=== PATIENT | female | born 1930 | race Caucasian/White ===

== ENCOUNTER 2016-09-24 18:18 | Inpatient (IN) ==
--- NOTE | 2016-09-24 18:27 | Emergency Department Note ---
Disposition Clinical Impression: Fracture, humerus, proximal Qualifiers: Encounter type: initial encounter Fracture type: closed Fracture morphology: other fracture Fracture alignment: displaced Laterality: left Qualified Code(s) : S42.292A - Other displaced fracture of upper end of left humerus, initial encounter for closed fracture Disposition: Admitted As Inpatient Condition: Fair Referrals: Cody Geronimo MD [Primary Care Provider] - Forms: ED Satisfaction Letter Fall HPI - General Chief Complaint: ED Fall Stated Complaint: FALL LEFT SHOULDER INJURY Time Seen by Provider: 09/24/16 18:25 Source: patient, EMS Mode of arrival: EMS Limitations: no limitations Nursing Notes Reviewed: Yes Vital Signs Reviewed: Yes - History of Present Illness HPI Narrative: Patient reports she tripped and fell shortly before presentation landing squarely on her left shoulder and sustaining no other area of injury. She denies any injury to her abdomen or back. She has not been having chest pain, palpitations or shortness of breath. She denies any weakness, dizziness or presyncopal complaints precipitating this fall. She has not been having abdominal pain, nausea, vomiting or diarrhea. She denies any extremity numbness , tingling or weakness. She reports severe pain with any motion of the left shoulder. 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 Place Fall Occurred: home Loss of Consciousness: none Prolonged Down Time?: no Symptoms Prior to Fall: none Context: tripped/slipped Location of injury - extremities: Left: shoulder Severity: severe Quality: sharp, aching Associated symptoms (after fall): Denies: headache, neck pain, numbness, weakness, chest pain, shortness of breath, abdominal pain, hematuria, lightheaded, vertigo, confusion - Related Data Home Medications Medication Instructions Recorded Confirmed Aspirin 81 mg PO DAILY 10/03/15 09/24/16 Cholecalciferol (Vitamin D3) 50,000 unit PO QWEEK 10/03/15 09/24/16 [Optimal D3] Cholecalciferol (Vitamin D3) 2,000 unit PO DAILY 10/03/15 09/24/16 [Vitamin D3] Hydrochlorothiazide 12.5 mg PO DAILY 10/03/15 09/24/16 Insulin ASPART [NovoLOG] 6 unit SQ TIDWM 10/03/15 09/24/16 Insulin DETEMIR [Levemir] 13 unit SQ HS 10/03/15 09/24/16 Lisinopril [Zestril] 40 mg PO DAILY 10/03/15 09/24/16 Metoprolol [Lopressor] 25 mg PO BID 10/03/15 09/24/16 Simvastatin [Zocor] 10 mg PO DAILY 10/03/15 09/24/16 Gabapentin [Neurontin] 100 mg PO TID 10/25/15 09/24/16 Rivaroxaban [Xarelto] 10 mg PO DAILY 05/31/16 09/24/16 Previous Rx's Medication Instructions Recorded LORazepam [Ativan] 0.5 mg PO TID PRN #10 tablet 04/13/16 Amlodipine [Norvasc] 5 mg PO BID #60 tablet 06/02/16 Allergies Allergy/AdvReac Type Severity Reaction Status Date / Time Penicillins [PCN] Allergy Rash Verified 10/25/15 12:19 All systems ED: reviewed and negative except as stated. Fall PMH - Past Medical History Medical history: Reports: arthritis, coronary artery disease, diabetes, hyperlipidemia, hypertension, myocardial infarction, pulmonary embolus, renal disease Surgical history: Reports: cholecystectomy, coronary bypass (CABG), other Psychiatric history: Reports: anxiety PIN PUSHER history: Reports: no PIN PUSHER history - Social History Smoking Status: Never smoker Alcohol use: Reports: none Drug use: Reports: none Physical Exam - General Limitations: no limitations General appearance: alert, anxious - Head Head exam: atraumatic, normocephalic, normal inspection, other (No tenderness to palpation about the scalp or facial prominences) - Eye Eye exam: Present: normal appearance, PERRL, EOMI. Absent: scleral icterus, conjunctival injection - ENT ENT exam: normal exam, normal oropharynx, mucous membranes moist - Neck Neck exam: Present: normal inspection, full ROM, trachea midline. Absent: tenderness, lymphadenopathy - Chest Chest inspection: Present: normal inspection, symmetric chest wall rise. Absent : tenderness - Respiratory Respiratory exam: Present: normal lung sounds bilaterally. Absent: respiratory distress, wheezes, prolonged expiratory phase - Cardiovascular Cardiovascular exam: Present: regular rate, normal rhythm, normal heart sounds. Absent: tachycardia - Abdominal Exam Abdominal exam: Present: soft, Non-Tender, normal bowel sounds. Absent: tenderness, distention, guarding, rebound, rigidity - Expanded Upper Extremity Exam Shoulder exam: Present: other (Shoulder his sound mildly anterior and appears to be somewhat shortened. She is tender over the dorsal and anterior aspect of the shoulder as well as some posterior pain to palpation. There is no erythema , bruising or crepitance.) Arm exam: Present: normal inspection, full ROM Elbow exam: Present: normal inspection, full ROM. Absent: tenderness, swelling Forearm/Wrist exam: Present: normal inspection, full ROM. Absent: tenderness, swelling Hand exam: Present: normal inspection, full ROM Vascular exam: Normal: capillary refill, radial pulse - Expanded Lower Extremity Exam Hip/Pelvis exam: Present: normal inspection, full ROM. Absent: tenderness, swelling Upper leg exam: Present: normal inspection, full ROM Knee exam: Present: normal inspection, full ROM, abrasion (Right knee). Absent : tenderness, swelling Lower leg exam: Present: normal inspection, full ROM Ankle exam: Present: normal inspection, full ROM. Absent: tenderness, swelling Foot/toe exam: Present: normal inspection, full ROM Neurovascular/Tendon exam: Present: normal capillary refill. Absent: motor deficit, sensory deficit, tendon deficit Gait: not tested/not observed - Back Exam Back exam: Present: normal inspection, full ROM. Absent: tenderness, vertebral tenderness - Neurological Exam Neurological exam: Present: alert, oriented X3, CN II-XII intact - Psychiatric Psychiatric exam: Present: agitated, anxious - Skin Skin exam: Present: warm, dry, intact, normal color. Absent: diaphoresis, pallor Course Course Narrative: 1939: Imaging results are discussed with the patient and family. I will be contacting Dr. Aburto concrete form setter for orthopedic to help coordinate her care. At this point believe she will likely need observation with a PT OT consult to assess her ability to care for self and help her with her mobility. She also is continuing with severe pain for which we are administering a second 0.5 mg dose of Dilaudid. 1944: Dr Aburto states that there be no immediate orthopedic intervention for this patient. He recommends observation under the hospitalist service for pain control and possibly go to rehabilitation. He would be happy to follow-up with her care and her shoulder to help coordinate care from home or rehabilitation. 1946: Dr. Nava has been contacted and he is agreeable to place this patient in for pain control as well as social science research assistant, PT and OT consultation on Monday. Vital Signs Temperature 98.3 F 09/24/16 18:26 Pulse Rate 88 09/24/16 18:26 Respiratory Rate 20 09/24/16 18:26 Blood Pressure 164/85 09/24/16 18:26 O2 Sat by Pulse Oximetry 99 09/24/16 18:26 Temperature 98.3 F 09/24/16 18:26 Pulse Rate 83 09/24/16 19:50 Respiratory Rate 16 09/24/16 19:50 Blood Pressure 162/70 09/24/16 19:50 O2 Sat by Pulse Oximetry 93 09/24/16 19:50 Oxygen Delivery Oxygen Delivery Room Air Fall - Differential Diagnosis Likely: syncope, traumatic injury, arrhythmia - Medical Records Medical records reviewed: Yes I reviewed the patient's medical records. - Lab Data Lab results reviewed: Yes I reviewed the patient's lab results. Result diagrams: 09/24/16 19:03 09/24/16 19:03 Lab Results 09/24/16 09/24/16 09/24/16 Range/Units 18:31 19:03 19:03 WBC 10.0 (4.3-11.1) K/mcL RBC 4.23 (3.82-4.97) M/mcL Hgb 13.7 (11.5-15.4) g/dL Hct 40.8 (35.3-44.9) % MCV 96.5 (83.0-100.0) fL MCH 32.4 (28.0-33.3) pg MCHC 33.6 (31.6-35.5) g/dL RDW 13.1 (11.5-14.5) % Plt Count 315 (140-400) K/mcL MPV 11.4 (9.4-12.4) fL Immature Gran % 0.3 (0-4) % Seg Neutrophils % 55.4 % Lymphocytes % 30.5 % Monocytes % 10.8 % Eosinophils % 2.3 % Basophils % 0.7 % Neutrophils # 5.5 (1.6-8.9) K/mcL Lymphocytes # 3.0 (0.6-4.6) K/mcL Monocytes # 1.1 (0.0-1.3) K/mcL Eosinophils # 0.2 (0.0-0.6) K/mcL Basophils # 0.1 (0.0-0.2) K/mcL PT 11.8 (9.4-12.1) Seconds INR 1.1 APTT 27.4 (26.0-36.0) Seconds Sodium (136-145) mEq/L Potassium (3.5-4.5) mEq/L Chloride (98-109) mEq/L Carbon Dioxide (19-29) mEq/L BUN (7-20) mg/dL Creatinine (0.57-1.11) mg/dL Est GFR ( Amer) (> 60) Est GFR (Non-Af Amer) (> 60) BUN/Creatinine Ratio (6-26) Glucose (70-99) mg/dL POC Glucose 92 H (58-89) Calculated Osmolality (280-300) Calcium (8.6-10.8) mg/dL 09/24/16 Range/Units 19:03 WBC (4.3-11.1) K/mcL RBC (3.82-4.97) M/mcL Hgb (11.5-15.4) g/dL Hct (35.3-44.9) % MCV (83.0-100.0) fL MCH (28.0-33.3) pg MCHC (31.6-35.5) g/dL RDW (11.5-14.5) % Plt Count (140-400) K/mcL MPV (9.4-12.4) fL Immature Gran % (0-4) % Seg Neutrophils % % Lymphocytes % % Monocytes % % Eosinophils % % Basophils % % Neutrophils # (1.6-8.9) K/mcL Lymphocytes # (0.6-4.6) K/mcL Monocytes # (0.0-1.3) K/mcL Eosinophils # (0.0-0.6) K/mcL Basophils # (0.0-0.2) K/mcL PT (9.4-12.1) Seconds INR APTT (26.0-36.0) Seconds Sodium 141 (136-145) mEq/L Potassium 3.9 (3.5-4.5) mEq/L Chloride 107 (98-109) mEq/L Carbon Dioxide 18 L (19-29) mEq/L BUN 28 H (7-20) mg/dL Creatinine 1.17 H (0.57-1.11) mg/dL Est GFR ( Amer) 53 L (> 60) Est GFR (Non-Af Amer) 44 L (> 60) BUN/Creatinine Ratio 24 (6-26) Glucose 92 (70-99) mg/dL POC Glucose (58-89) Calculated Osmolality 297 (280-300) Calcium 9.0 (8.6-10.8) mg/dL - Radiology Data Radiology results reviewed: Yes I reviewed the patient's radiology results. Two-view of the left humerus demonstrates a displaced proximal humeral fracture. No other acute abnormality is seen. This is on my interpretation. 2 view x-ray of the left shoulder also demonstrates the proximal left humeral fracture. There is displacement. There is no evidence for dislocation. Adjacent ribs and lung appear to be intact. This is on my interpretation. Impressions Shoulder X-Ray 09/24/16 18:27 IMPRESSION: Comminuted impacted displaced rheumatic fracture of the proximal left humerus. . The number of fracture fragments is difficult to determine. D/ / Melvin Pringle MD / Melvin Pringle MD Interpreting Provider: Melvin Pringle MD Humerus X-Ray 09/24/16 19:01
[2016-09-24] MEDS ORDERED: *HR* HYDROmorphone (PF) 1 MG/ML SYRINGE IVP ONE ×2 (18:28→19:12)
[2016-09-24] MEDS ORDERED: Ondansetron 4 MG/2 ML VIAL IVP ONE (18:28)
[2016-09-24] MEDS ORDERED: 0.9 % Sodium Chloride 1,000 ML IVC SCH ×2 (18:30→20:54)
[2016-09-24 19:17] LABS: Basophils # 0.1 K/mcL (0.0-0.2); Basophils % 0.7 %; Eosinophils # 0.2 K/mcL (0.0-0.6); Eosinophils % 2.3 %; Hematocrit 40.8 % (35.3-44.9); Hemoglobin 13.7 g/dL (11.5-15.4); Immature Granulocytes % 0.3 % (0-4); Lymphocytes % 30.5 %; Mean Corpuscular HGB Conc 33.6 g/dL (31.6-35.5); Mean Corpuscular Hemoglobin 32.4 pg (28.0-33.3); Mean Corpuscular Volume 96.5 fL (83.0-100.0); Mean Platelet Volume 11.4 fL (9.4-12.4); Monocytes # 1.1 K/mcL (0.0-1.3); Monocytes % 10.8 %; Neutrophils # 5.5 K/mcL (1.6-8.9); Platelet Count 315 K/mcL (140-400); Red Blood Count 4.23 M/mcL (3.82-4.97); Red Cell Distribution Width 13.1 % (11.5-14.5); Segmented Neutrophils % 55.4 %
[2016-09-24 19:23] LABS: INR 1.1; Prothrombin Time 11.8 Seconds (9.4-12.1)
[2016-09-24 19:25] LABS: Activated Partial Thrombo Time 27.4 Seconds (26.0-36.0)
[2016-09-24 19:33] LABS: Potassium 3.9 mEq/L (3.5-4.5)
[2016-09-24] MEDS ORDERED: MOM Conc 10 ML UD.LIQ PO PRN (20:54)
[2016-09-24] MEDS ORDERED: *HR* Dextrose 50 % in Water (Syg) 50 ML SYRINGE IVP PRN (20:54)
[2016-09-24] MEDS ORDERED: Dextrose Gel 15 GM PO PRN ×2 (20:54)
[2016-09-24] MEDS ORDERED: D5% in Water 1,000 ML IVC PRN (20:54)
[2016-09-24] MEDS ORDERED: Naloxone 0.4 MG/ML INJ IVP PRN (20:54)
[2016-09-24] MEDS ORDERED: INSULIN DETEMIR 13 UNIT SQ SCH (21:00)
[2016-09-24] MEDS ORDERED: Insulin DETEMIR 100 UNIT/ML per UNIT SQ ONE (21:15)
[2016-09-24] MEDS: Ondansetron 4 MG/2 ML VIAL IVP PRN (21:22)
[2016-09-24] MEDS: *HR* HYDROmorphone (PF) 1 MG/ML SYRINGE IVP PRN (23:54)
[2016-09-25] MEDS: Gabapentin 100 MG CAPSULE PO SCH ×2 (02:29→09:05)
[2016-09-25] MEDS: *HR* LORazepam 0.5 MG TABLET PO PRN ×2 (02:46→20:50)
[2016-09-25] MEDS: *HR* HYDROcodone/Acet 5/325 mg TABLET PO PRN ×3 (02:46→14:54)
[2016-09-25] MEDS ORDERED: Pantoprazole 40 MG VIAL IVP SCH (06:30)
[2016-09-25] MEDS ORDERED: Insulin LISPRO 300 UNITS/3 ML VIAL SQ SCH (08:00)
[2016-09-25] MEDS: Insulin DETEMIR 100 UNIT/ML X5UNITS SQ SCH (08:09)
[2016-09-25] MEDS: Ondansetron 4 MG/2 ML VIAL IVP PRN (08:16)
[2016-09-25] MEDS: Insulin LISPRO 300 UNITS/3 ML VIAL SQ SCH ×3 (08:21→17:32)
[2016-09-25] MEDS: 0.9 % Sodium Chloride 1,000 ML IVC SCH ×2 (09:03→21:34)
[2016-09-25] MEDS: Cholecalciferol (D-3) 1,000 UNIT TABLET PO SCH (09:04)
[2016-09-25] MEDS: Aspirin 81 MG TAB.CHEW PO SCH (09:04)
[2016-09-25] MEDS: Lisinopril 20 MG TABLET PO SCH (09:04)
[2016-09-25] MEDS ORDERED: Gabapentin 100 MG CAPSULE PO PRN (09:20)
--- NOTE | 2016-09-25 11:35 | Internal Med History&Physical ---
Date of Encounter: 09/25/16 Time of Encounter: 11:00 Assessment and Plan (1) Fracture, humerus, proximal Current visit: Yes Status: Acute She will be given scheduled and prn analgesics. PT and OT evaluations will be ordered. Qualifiers: Encounter type: initial encounter Fracture type: closed Fracture morphology: other fracture Fracture alignment: displaced Laterality: left Qualified Code(s): S42.292A - Other displaced fracture of upper end of left humerus, initial encounter for closed fracture (2) DM type 2 (diabetes mellitus, type 2) Current visit: No Status: Chronic Continue Levemir and Accu-Cheks with SSI. 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 (4) Chronic lower back pain Current visit: No Status: Chronic Will start low-dose OxyContin for humerus fracture. We will also continue prn Robbins Qualifiers: Back pain laterality: right Sciatica presence: with sciatica Sciatica laterality: sciatica of right side Qualified Code(s): M54.41 - Lumbago with sciatica, right side; G89.29 - Other chronic pain (5) Hypertension Current visit: Yes Status: Chronic Continue Norvasc, HCTZ, Zestril, and Lopressor. Qualifiers: Hypertension type: essential hypertension Qualified Code(s): I10 - Essential (primary) hypertension Internal Medicine - H&P: HPI Chief complaint: Left humerus fracture Admitted From: Home Plans for Post Hospital Care: Home History of present illness: Ms. Pugh is a 85 year old female who sustained a fall at home while walking. She landed on her left shoulder and had immediate pain. She pushed her [facility] button and help arrived. She was brought to emergency room and x-rays showed impacted left humerus fracture with medial displacement and apex medial angulation with comminution. Contact was made with [facility] orthopedic surgeons who felt nonoperative intervention was appropriate. She was placed in an immobilizing sling and admitted to [facility] for ongoing care needs. She denies head trauma or loss of consciousness. She is having slight pain at the present time. Her musk skeletal history significant for DJD and osteoporosis but no known gout. She had 3 knee injections recently. Past Med Surg Social Fam HX - Past Medical History Medical history: arthritis, atrial fibrillation, coronary artery disease, DVT, diabetes, hyperlipidemia, hypertension, myocardial infarction, pulmonary embolus , renal disease Psychiatric history: anxiety - Past Surgical History Surgical History: cholecystectomy, coronary bypass (CABG), other, IVC filter - Social History Smoking Status: Never smoker Smokeless Tobacco Status: No Alcohol use: none Drug use: none Internal Medicine - H&P: Meds Aspirin 81 mg PO DAILY 10/03/15 [History] Cholecalciferol (Vitamin D3) [Optimal D3] 50,000 unit PO QWEEK 10/03/15 [History ] Cholecalciferol (Vitamin D3) [Vitamin D3] 2,000 unit PO DAILY 10/03/15 [History] Hydrochlorothiazide 12.5 mg PO DAILY 10/03/15 [History] Insulin ASPART [NovoLOG] 0 unit SQ TIDWM 10/03/15 [History] Insulin DETEMIR [Levemir] 16 unit SQ QAM 10/03/15 [History] Lisinopril [Zestril] 40 mg PO DAILY 10/03/15 [History] Metoprolol [Lopressor] 12.5 mg PO BID 10/03/15 [History] Simvastatin [Zocor] 10 mg PO DAILY 10/03/15 [History] Gabapentin [Neurontin] 100 mg PO TID PRN 10/25/15 [History] Rivaroxaban [Xarelto] 10 mg PO DAILY 05/31/16 [History] Amlodipine [Norvasc] 5 mg PO BID #60 tablet 06/02/16 [Rx] Allergies Penicillins [PCN] Allergy (Verified 10/25/15 12:19) Rash All Systems PM: A 10-system review of systems was performed and is negative for pertinent findings except as documented above in the HPI. Review of systems: Gen.: Her weight has increased from 81.647 kg at the November 2014 hospitalization to 85.457 kg at present. Cardiovascular: She has hypertension and known ASHD status post NSTEMI January 2014 and 3 vessel CABG April 2014 with MONZON to LAD, SVG to first OM, and SVG to PDA. Her postop course required thoracentesis on the left. She had I&D of left chest and sternotomy wounds February 2014 with wound VAC required. She has had pulmonary emboli on 2 occasions, most recently in 2008. She is now on Xarelto. She has an IVC filter. She had an echocardiogram done March 2016 which showed normal LVEF at 60%. There was mild diastolic dysfunction ported. She does not have clinical heart failure. Respiratory: She is a liflifelong nonsmoker and has no known chronic lung disease. She has had negative workup for SARA.. She has a paralyzed right hemidiaphragm. GI:She has had cholecystectomy but denies disorders of her liver or exocrine pancreas. She had colonoscopy approximately 2011 without significant pathology seen. She has occasional constipation. : No history of hematuria dysuria or kidney stones. She has chronic kidney disease stage III. Neurologic: No history of large distribution strokes or seizures Endocrine: She was diagnosed with DM 2 approximately 1985. She has hyperlipidemia but denies thyroid disease. Hematology/oncology: She denies blood disorders cancers or anemia Psychiatric: She has anxiety but no significant depression or other mental health issues Musk skeletal: As per history of present illness - Constitutional Vitals: Temp Pulse Resp BP Pulse Ox 98.1 F 68 16 124/59 92 09/25/16 11:00 09/25/16 11:00 09/25/16 11:00 09/25/16 11:00 09/25/16 11:00 Exam: Gen.: She is a well-developed well-nourished female who appears in slight pain at present time HEENT: Head is atraumatic and normocephalic. Eyes: EOMI. There is no scleral icterus. Mouth: Mucosa is moist. Neck: Supple and nontender. There is no thyromegaly or adenopathy noted. Heart: Regular without murmurs gallops or ectopics. Lungs: No wheezes or crackles heard. Abdomen: Soft and nontender. No masses or guarding are noted. Extremities: She has skin tear maximum diameter approximately 3 cm on the left medial knee area. Her left arm is in an immobilizing sling. She has mild DJD changes of her hands. Dorsalis pedis and posterior tibial pulses are trace palpable bilaterally. Neurologic: Mental status: She is talkative and a good historian. Cranial nerves: Smile is symmetric. Forehead wrinkles bilaterally. Tongue protrudes midline. EOMI. Motor: There is no pronator drift with the right arm. The left arm is immobilized. Cerebellar: Finger to nose is intact with the right arm. Skin: Warm and dry Internal Med - H&P Results - Labs CBC & Chem 7: 09/24/16 19:03 09/24/16 19:03 - VTE Documentation of Mechanical Device: Graduated compression elastic hosiery
[2016-09-25] MEDS: *HR* OxyCODONE ER (12 HR) 10 MG TABLET PO SCH (20:46)
[2016-09-25] MEDS ORDERED: Insulin DETEMIR 100 UNIT/ML X5UNITS SQ SCH (21:00)
[2016-09-26] MEDS: *HR* HYDROcodone/Acet 5/325 mg TABLET PO PRN ×2 (01:30→07:41)
[2016-09-26] MEDS: *HR* HYDROmorphone (PF) 1 MG/ML SYRINGE IVP PRN (01:32)
[2016-09-26] MEDS: *HR* OxyCODONE ER (12 HR) 10 MG TABLET PO SCH ×2 (01:40→08:28)
[2016-09-26 05:25] LABS: Basophils # 0.1 K/mcL (0.0-0.2); Basophils % 0.6 %; Eosinophils # 0.2 K/mcL (0.0-0.6); Eosinophils % 2.1 %; Hematocrit 37.4 % (35.3-44.9); Hemoglobin 12.3 g/dL (11.5-15.4); Immature Granulocytes % 0.4 % (0-4); Lymphocytes # 2.3 K/mcL (0.6-4.6); Lymphocytes % 21.3 %; Mean Corpuscular HGB Conc 32.9 g/dL (31.6-35.5); Mean Corpuscular Hemoglobin 32.5 pg (28.0-33.3); Mean Corpuscular Volume 98.7 fL (83.0-100.0); Mean Platelet Volume 11.7 fL (9.4-12.4); Monocytes # 1.1 K/mcL (0.0-1.3); Monocytes % 10.3 %; Platelet Count 248 K/mcL (140-400); Red Blood Count 3.79 M/mcL (3.82-4.97); Red Cell Distribution Width 13.4 % (11.5-14.5); Segmented Neutrophils % 65.3 %
[2016-09-26 05:40] LABS: Calcium 8.4 mg/dL (8.6-10.8); Magnesium 1.9 mg/dL (1.6-2.6); Potassium 4.6 mEq/L (3.5-4.5)
[2016-09-26] MEDS: *HR* LORazepam 0.5 MG TABLET PO PRN ×2 (08:03→20:54)
[2016-09-26] MEDS: Cholecalciferol (D-3) 1,000 UNIT TABLET PO SCH (08:30)
[2016-09-26] MEDS: Aspirin 81 MG TAB.CHEW PO SCH (08:31)
[2016-09-26] MEDS: Lisinopril 20 MG TABLET PO SCH (08:31)
[2016-09-26] MEDS: Insulin LISPRO 300 UNITS/3 ML VIAL SQ SCH ×3 (08:32→17:28)
[2016-09-26] MEDS: Ondansetron 4 MG/2 ML VIAL IVP PRN ×2 (08:59→16:05)
--- NOTE | 2016-09-26 11:23 | Internal Med Progress Note ---
Date of Encounter: 09/26/16 Time of Encounter: 11:10 - Assessment and plan (1) Fracture, humerus, proximal Current Visit: Yes Status: Acute Assessment and plan: September 26. Will refer to Dr. Moore. Discontinue Dilaudid and OxyContin and give scheduled [place] while awake. Will also order topical analgesics and Lidoderm patch. Qualifiers: Encounter type: initial encounter Fracture type: closed Fracture morphology: other fracture Fracture alignment: displaced Laterality: left Qualified Code(s): S42.292A - Other displaced fracture of upper end of left humerus, initial encounter for closed fracture (2) DM type 2 (diabetes mellitus, type 2) Current Visit: No Status: Chronic Assessment and plan: September 26. Continue Levemir and Accu-Cheks with SSI. Hemoglobin A1c was 8.0%. 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 Continue to monitor renal indices. (4) Chronic lower back pain Current Visit: No Status: Chronic Assessment and plan: September 26. We will give scheduled [place] while awake Qualifiers: Back pain laterality: right Sciatica presence: with sciatica Sciatica laterality: sciatica of right side Qualified Code(s): M54.41 - Lumbago with sciatica, right side; G89.29 - Other chronic pain (5) Hypertension Current Visit: Yes Status: Chronic Assessment and plan: September 26. Blood pressure shows significant fluctuations. We will increase Lopressor and continue Norvasc. Hold lisinopril and HCTZ due to worsening azotemia. Qualifiers: Hypertension type: essential hypertension Qualified Code(s): I10 - Essential (primary) hypertension - Subjective Interval history: September 26. She has no new complaints. She had nausea earlier without significant vomiting. She has significant pain during the night requiring IV Dilaudid and oral [place]. She has been sedated since receiving the medications. - Constitutional Vitals: Temp Pulse Resp BP Pulse Ox 98.6 F 80 18 178/76 94 09/26/16 07:22 09/26/16 08:36 09/26/16 08:36 09/26/16 08:36 09/26/16 08:36 Exam: She is resting comfortably in bed. She opens her eyes but speaks very little. I discussed her situation with her daughter who is in the room. I reviewed her medications and lab results. Internal Medicine: Result - Labs CBC & Chem 7: 09/26/16 05:03 09/26/16 05:03 Labs: Short CBC 09/26/16 Range/Units 05:03 WBC 10.7 (4.3-11.1) K/mcL Hgb 12.3 (11.5-15.4) g/dL Hct 37.4 (35.3-44.9) % Plt Count 248 (140-400) K/mcL Neutrophils # 7.0 (1.6-8.9) K/mcL BMP 09/26/16 05:03 Sodium 139 Potassium 4.6 H Chloride 107 Carbon Dioxide 22 BUN 27 H Creatinine 1.26 H Glucose 186 H Calcium 8.4 L - ABG Interpretation ABG results: PT/INR, D-dimer PT 11.8 Seconds (9.4-12.1) 09/24/16 19:03 - VTE Documentation of Mechanical Device: Graduated compression elastic hosiery Consult Discharge Plan - Plan Referrals: Cody Geronimo MD [Primary Care Provider] - 1 week
[2016-09-26] MEDS: Methyl Salicylate/Menthol 28 GM TUBE TP SCH ×2 (12:36→20:53)
[2016-09-26] MEDS: Insulin DETEMIR 100 UNIT/ML X5UNITS SQ SCH (12:37)
[2016-09-26] MEDS: *HR* HYDROcodone/Acet 5/325 mg TABLET PO SCH ×3 (12:37→20:53)
[2016-09-27] MEDS: *HR* HYDROcodone/Acet 5/325 mg TABLET PO SCH ×6 (03:21→20:27)
[2016-09-27] MEDS: Insulin LISPRO 300 UNITS/3 ML VIAL SQ SCH ×3 (07:41→16:53)
[2016-09-27] MEDS: Cholecalciferol (D-3) 1,000 UNIT TABLET PO SCH (08:16)
[2016-09-27] MEDS: Aspirin 81 MG TAB.CHEW PO SCH (08:16)
[2016-09-27] MEDS: Insulin DETEMIR 100 UNIT/ML X5UNITS SQ SCH (08:56)
[2016-09-27] MEDS: Methyl Salicylate/Menthol 28 GM TUBE TP SCH ×2 (12:33→20:29)
--- NOTE | 2016-09-27 14:08 | Discharge Summary ---
Date of Encounter: 09/27/16 Time of Encounter: 12:30 - Discharge Diagnosis (1) Fracture, humerus, proximal Priority: Primary Status: Acute Qualifiers: Encounter type: initial encounter Fracture type: closed Fracture morphology: other fracture Fracture alignment: displaced Laterality: left Qualified Code(s): S42.292A - Other displaced fracture of upper end of left humerus, initial encounter for closed fracture (2) DM type 2 (diabetes mellitus, type 2) Priority: Secondary Status: Chronic Qualifiers: Diabetes mellitus complication status: with kidney complications Diabetes mellitus complication detail: with chronic kidney disease Diabetes mellitus long term care phlebotomist insulin use: with long term care phlebotomist use Chronic kidney disease stage: stage 3 (moderate) Qualified Code(s): E11.22 - Type 2 diabetes mellitus with diabetic chronic kidney disease; N18.3 - Chronic kidney disease, stage 3 ( moderate); Z79.4 - long term care phlebotomist (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 of insulin (3) CKD (chronic kidney disease) stage 3, GFR 30-59 ml/min Priority: Secondary Status: Chronic (4) Chronic lower back pain Priority: Secondary Status: Chronic Qualifiers: Back pain laterality: right Sciatica presence: with sciatica Sciatica laterality: sciatica of right side Qualified Code(s): M54.41 - Lumbago with sciatica, right side; G89.29 - Other chronic pain (5) Hypertension Priority: Secondary Status: Chronic Qualifiers: Hypertension type: essential hypertension Qualified Code(s): I10 - Essential (primary) hypertension - Discharge Medications Home Medications: Aspirin 81 mg PO DAILY 10/03/15 [History] Cholecalciferol (Vitamin D3) [Optimal D3] 50,000 unit PO QWEEK 10/03/15 [History ] Cholecalciferol (Vitamin D3) [Vitamin D3] 2,000 unit PO DAILY 10/03/15 [History] Insulin ASPART [NovoLOG] 0 unit SQ TIDWM 10/03/15 [History] Insulin DETEMIR [Levemir] 16 unit SQ QAM 10/03/15 [History] Simvastatin [Zocor] 10 mg PO DAILY 10/03/15 [History] Gabapentin [Neurontin] 100 mg PO TID PRN 10/25/15 [History] Rivaroxaban [Xarelto] 10 mg PO DAILY 05/31/16 [History] Amlodipine [Norvasc] 5 mg PO BID #60 tablet 06/02/16 [Rx] Lidocaine Patch [Lidoderm 5% patch] 1 each TP DAILY adh..patch 09/27/16 [Rx] Methyl Salicylate/Menthol [Bengay] 1 appl TP BID tube 09/27/16 [Rx] Metoprolol [Lopressor] 25 mg PO BID #0 09/27/16 [Rx] Allergies/Adverse Reactions: Allergies Penicillins [PCN] Allergy (Verified 10/25/15 12:19) Rash Date of admission: 09/24/16 20:03 Primary care physician: Cody Geronimo MD Consults: 09/25/16 11:46 Consult to Occupational Therapy [CONS] Routine Comment: Evaluate, develop and implement POC - Patient Status Disposition: Transfer Hospital Swing Bed Condition: Fair Functional capacity at discharge: wheelchair bound Overall status at discharge: patient is progressing back to baseline - Discharge Instructions - Diet and Activity Activity: as per physical therapy Diet: diabetic diet Hospital course: Ms. Pugh is a 85 year old female who sustained a fall at home while walking. She landed on her left shoulder and had immediate pain. She pushed her [employer] button and help arrived. She was brought to emergency room and x-rays showed impacted left humerus fracture with medial displacement and apex medial angulation with comminution. Contact was made with [facility] orthopedic surgeons who felt nonoperative intervention was appropriate. She was placed in an immobilizing sling and admitted to [facility] for ongoing care needs. Initial orders were written by the emergency room physician. I saw her on September 25 and performed the history and physical. She maintained arm immobilization with the use of an arm sling. Physical therapy and occupational therapy evaluations and ongoing interventions were ordered. She will follow with an orthopedist to monitor the fracture. Pain was controlled reasonably well with [place] every 4 hours while awake. The hydrochlorothiazide and lisinopril were discontinued. She continued on Lopressor and Norvasc. Blood pressure was satisfactory. Renal indices will continue to be monitored. Hemoglobin A1c returned slightly elevated at 8.0%. She will continue Levemir and Accu-Cheks with SSI in swing bed. On September 27 arrangements were complete for her to be discharged to swing bed where she will continue to have therapy intervention. - Time Spent with Patient Total time spent providing and/or coordinating discharge services: - Constitutional Vitals: Temp Pulse Resp BP Pulse Ox 98.2 F 59 20 125/62 94 09/27/16 10:39 09/27/16 10:39 09/27/16 10:39 09/27/16 10:39 09/27/16 10:39 - VTE Documentation of Mechanical Device: Graduated compression elastic hosiery
[2016-09-28] MEDS: *HR* HYDROcodone/Acet 5/325 mg TABLET PO SCH ×5 (00:06→17:03)
[2016-09-28] MEDS: Cholecalciferol (D-3) 1,000 UNIT TABLET PO SCH (08:02)
[2016-09-28] MEDS: Aspirin 81 MG TAB.CHEW PO SCH (08:02)
[2016-09-28] MEDS: Methyl Salicylate/Menthol 28 GM TUBE TP SCH (08:03)
[2016-09-28] MEDS ORDERED: *HR* Rivaroxaban 10 MG TABLET PO SCH (09:00)
[2016-09-28] MEDS: Insulin DETEMIR 100 UNIT/ML X5UNITS SQ SCH (09:13)
[2016-09-28] MEDS: Insulin LISPRO 300 UNITS/3 ML VIAL SQ SCH ×3 (09:13→17:01)
[2016-09-28 14:30] VITALS: BP 142/54
[2016-09-28] MEDS ORDERED: Ondansetron ODT 4 MG TAB.RAPDIS SL PRN (14:35)
--- NOTE | 2016-09-28 16:57 | Discharge Summary ---
Date of Encounter: 09/28/16 Time of Encounter: 16:40 - Discharge Diagnosis (1) Fracture, humerus, proximal Priority: Primary Status: Acute Qualifiers: Encounter type: initial encounter Fracture type: closed Fracture morphology: other fracture Fracture alignment: displaced Laterality: left Qualified Code(s): S42.292A - Other displaced fracture of upper end of left humerus, initial encounter for closed fracture (2) DM type 2 (diabetes mellitus, type 2) Priority: Secondary Status: Chronic Qualifiers: Diabetes mellitus complication status: with kidney complications Diabetes mellitus complication detail: with chronic kidney disease Diabetes mellitus fci insulin use: with technician terminal and repeater use Chronic kidney disease stage: stage 3 (moderate) Qualified Code(s): E11.22 - Type 2 diabetes mellitus with diabetic chronic kidney disease; N18.3 - Chronic kidney disease, stage 3 ( moderate); 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.4 - 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 (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 of 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 (3) CKD (chronic kidney disease) stage 3, GFR 30-59 ml/min Priority: Secondary Status: Chronic (4) Chronic lower back pain Priority: Secondary Status: Chronic Qualifiers: Back pain laterality: right Sciatica presence: with sciatica Sciatica laterality: sciatica of right side Qualified Code(s): M54.41 - Lumbago with sciatica, right side; G89.29 - Other chronic pain (5) Hypertension Priority: Secondary Status: Chronic Qualifiers: Hypertension type: essential hypertension Qualified Code(s): I10 - Essential (primary) hypertension - Discharge Medications Home Medications: Aspirin 81 mg PO DAILY 10/03/15 [History] Cholecalciferol (Vitamin D3) [Optimal D3] 50,000 unit PO QWEEK 10/03/15 [History ] Cholecalciferol (Vitamin D3) [Vitamin D3] 2,000 unit PO DAILY 10/03/15 [History] Insulin ASPART [NovoLOG] See Protocol SQ TIDWM 10/03/15 [History] Insulin DETEMIR [Levemir] 16 unit SQ QAM 10/03/15 [History] Simvastatin [Zocor] 10 mg PO DAILY 10/03/15 [History] Gabapentin [Neurontin] 100 mg PO TID PRN 10/25/15 [History] Rivaroxaban [Xarelto] 10 mg PO DAILY 05/31/16 [History] Amlodipine [Norvasc] 5 mg PO BID #60 tablet 06/02/16 [Rx] Lidocaine Patch [Lidoderm 5% patch] 1 each TP DAILY adh..patch 09/27/16 [Rx] Methyl Salicylate/Menthol [Bengay] 1 appl TP BID tube 09/27/16 [Rx] Metoprolol [Lopressor] 25 mg PO BID #0 09/27/16 [Rx] Allergies/Adverse Reactions: Allergies Penicillins [PCN] Allergy (Verified 10/25/15 12:19) Rash Date of admission: 09/24/16 20:03 Primary care physician: Cody Geronimo MD Consults: 09/25/16 11:46 Consult to Occupational Therapy [CONS] Routine Comment: Evaluate, develop and implement POC - Patient Status Disposition: Transfer Hospital Swing Bed Condition: Fair Functional capacity at discharge: uses cane/walker Overall status at discharge: patient is progressing back to baseline - Discharge Instructions - Diet and Activity Activity: as per physical therapy Diet: diabetic diet Hospital course: Ms. Pugh is a 85 year old female who sustained a fall at home while walking. She landed on her left shoulder and had immediate pain. She pushed her [employer] button and help arrived. She was brought to emergency room and x-rays showed impacted left humerus fracture with medial displacement and apex medial angulation with comminution. Contact was made with [facility] orthopedic surgeons who felt nonoperative intervention was appropriate. She was placed in an immobilizing sling and admitted to [facility] for ongoing care needs. Initial orders were written by the emergency room physician. I saw her on September 25 and performed the history and physical. She maintained arm immobilization with the use of an arm sling. Physical therapy and occupational therapy evaluations and ongoing interventions were ordered. She will follow with an orthopedist to monitor the fracture. Pain was controlled reasonably well with [place] every 4 hours while awake. The hydrochlorothiazide and lisinopril were discontinued. She continued on Lopressor and Norvasc. Blood pressure was satisfactory. Renal indices will continue to be monitored. Hemoglobin A1c returned slightly elevated at 8.0%. She will continue Levemir and Accu-Cheks with SSI in swing bed. On September 27 arrangements were complete for her to be discharged to swing bed where she will continue to have therapy intervention. Addendum: Her discharge was canceled September 27 after it was learned her insurance had not approved discharge to swing bed. Her previous orders were resumed. Word was received the afternoon of September 28 from insurance she had been approved to swing bed. - Time Spent with Patient Total time spent providing and/or coordinating discharge services: - Constitutional Vitals: Temp Pulse Resp BP Pulse Ox 98.2 F 54 16 142/54 96 09/28/16 14:29 09/28/16 14:29 09/28/16 14:29 09/28/16 14:29 09/28/16 14:29 - VTE Documentation of Mechanical Device: Graduated compression elastic hosiery
== END 2016-09-28 17:19 | disposition other institution (70) | DRG 563 ==
LOC: INPPIK 18:18 → EMEROOPIK 18:18 → INPPIK 20:42 → UNDODISIN 09-27 14:50
PROVIDERS: ADMIT Internal Medicine; ATTEND Internal Medicine

== ENCOUNTER 2016-09-28 17:06 | Inpatient (IN) ==
[2016-09-28] MEDS ORDERED: Ondansetron ODT 4 MG TAB.RAPDIS SL ONE (17:45)
[2016-09-28] MEDS ORDERED: D5% in Water 1,000 ML IVC PRN (17:45)
[2016-09-28] MEDS ORDERED: Dextrose Gel 15 GM PO PRN ×2 (17:45)
[2016-09-28] MEDS ORDERED: *HR* Dextrose 50 % in Water (Syg) 50 ML SYRINGE IVP PRN (17:45)
[2016-09-28] MEDS ORDERED: *HR* OxyCODONE/APAP 5/325 TABLET PO PRN (20:35)
[2016-09-28] MEDS: amLODIPine 5 MG TABLET PO SCH (20:54)
[2016-09-28] MEDS: *HR* OxyCODONE/APAP 5/325 TABLET PO SCH (20:55)
[2016-09-28] MEDS: Methyl Salicylate/Menthol 28 GM TUBE TP SCH (20:58)
[2016-09-28] MEDS ORDERED: *HR* HYDROcodone/Acet 5/325 mg TABLET PO SCH (21:00)
[2016-09-28] MEDS ORDERED: predniSONE 20 MG TABLET PO ONE (22:58)
[2016-09-29] MEDS: *HR* OxyCODONE/APAP 5/325 TABLET PO SCH ×5 (01:44→17:54)
[2016-09-29 07:13] LABS: Basophils % 0.2 %; Hematocrit 36.6 % (35.3-44.9); Hemoglobin 12.1 g/dL (11.5-15.4); Immature Granulocytes % 0.6 % (0-4); Lymphocytes # 0.6 K/mcL (0.6-4.6); Lymphocytes % 7.5 %; Mean Corpuscular HGB Conc 33.1 g/dL (31.6-35.5); Mean Corpuscular Hemoglobin 32.3 pg (28.0-33.3); Mean Corpuscular Volume 97.6 fL (83.0-100.0); Monocytes # 0.2 K/mcL (0.0-1.3); Monocytes % 2.3 %; Neutrophils # 7.3 K/mcL (1.6-8.9); Platelet Count 243 K/mcL (140-400); Red Blood Count 3.75 M/mcL (3.82-4.97); Red Cell Distribution Width 13.2 % (11.5-14.5); Segmented Neutrophils % 89.4 %
[2016-09-29 07:16] LABS: INR 1.2; Prothrombin Time 12.7 Seconds (9.4-12.1)
[2016-09-29 07:18] LABS: Activated Partial Thrombo Time 30.4 Seconds (26.0-36.0)
[2016-09-29] MEDS: *HR* Rivaroxaban 10 MG TABLET PO SCH (09:06)
[2016-09-29] MEDS: Cholecalciferol (D-3) 1,000 UNIT TABLET PO SCH (09:06)
[2016-09-29] MEDS: amLODIPine 5 MG TABLET PO SCH ×2 (09:06→21:38)
[2016-09-29] MEDS: Aspirin 81 MG TAB.CHEW PO SCH (09:06)
[2016-09-29] MEDS: Insulin LISPRO 300 UNITS/3 ML VIAL SQ SCH ×3 (09:12→17:53)
[2016-09-29] MEDS: Insulin DETEMIR 100 UNIT/ML X5UNITS SQ SCH (09:12)
[2016-09-29] MEDS: Methyl Salicylate/Menthol 28 GM TUBE TP SCH ×2 (09:16→21:38)
[2016-09-29] MEDS: Gabapentin 100 MG CAPSULE PO PRN ×2 (10:57→17:54)
[2016-09-29] MEDS ORDERED: Bisacodyl 10 MG RECTAL SUPPOSITORY RC ONE (17:30)
[2016-09-29] MEDS: MOM Conc 10 ML UD.LIQ PO SCH (21:38)
[2016-09-30] MEDS: Gabapentin 100 MG CAPSULE PO PRN (02:59)
[2016-09-30] MEDS: *HR* OxyCODONE/APAP 5/325 TABLET PO SCH ×7 (06:53→21:12)
[2016-09-30] MEDS: Cholecalciferol (D-3) 1,000 UNIT TABLET PO SCH (08:24)
[2016-09-30] MEDS: amLODIPine 5 MG TABLET PO SCH ×2 (08:24→21:13)
[2016-09-30] MEDS: *HR* Rivaroxaban 10 MG TABLET PO SCH (08:24)
[2016-09-30] MEDS: Aspirin 81 MG TAB.CHEW PO SCH (08:25)
[2016-09-30] MEDS: Insulin LISPRO 300 UNITS/3 ML VIAL SQ SCH ×3 (08:30→16:19)
[2016-09-30] MEDS: Insulin DETEMIR 100 UNIT/ML X5UNITS SQ SCH (08:32)
[2016-09-30] MEDS: Methyl Salicylate/Menthol 28 GM TUBE TP SCH ×2 (08:32→21:14)
--- NOTE | 2016-09-30 15:12 | Internal Med Progress Note ---
Date of Encounter: 09/30/16 Time of Encounter: 14:55 - Assessment and plan (1) Fracture, humerus, proximal Current Visit: No Status: Acute Assessment and plan: September 30. Continue therapy intervention, arm immobilization, and Percocet Qualifiers: Encounter type: initial encounter Fracture type: closed Fracture morphology: other fracture Fracture alignment: displaced Laterality: left Qualified Code(s): S42.292A - Other displaced fracture of upper end of left humerus, initial encounter for closed fracture (2) DM type 2 (diabetes mellitus, type 2) Current Visit: No Status: Chronic Assessment and plan: September 30. Continue Levemir and Accu-Cheks with SSI. Qualifiers: Diabetes mellitus complication status: with kidney complications Diabetes mellitus complication detail: with chronic kidney disease Diabetes mellitus half-way insulin use: with termite helper use Chronic kidney disease stage: stage 3 (moderate) Qualified Code(s): E11.22 - Type 2 diabetes mellitus with diabetic chronic kidney disease; N18.3 - Chronic kidney disease, stage 3 ( moderate); Z79.4 - technician terminal and repeater (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 of insulin (3) CKD (chronic kidney disease) stage 3, GFR 30-59 ml/min Current Visit: No Status: Chronic Assessment and plan: September 30. We will monitor renal indices. (4) Hypertension Current Visit: No Status: Chronic Assessment and plan: September 30. Continue Norvasc and Lopressor. Remain off hydrochlorothiazide and lisinopril. Qualifiers: Hypertension type: essential hypertension Qualified Code(s): I10 - Essential (primary) hypertension - Subjective Interval history: September 30. She was hospitalized in acute care at [facility] September 24 after presenting with impacted left humerous fracture. She was treated nonsurgically. PT and OT evaluations and ongoing interventions were done. She was discharged to swing bed for ongoing therapy. She has been changed from [place] to Percocet and states her pain has lessened. She saw Dr. Moore who changed her to a different left arm immobilization sling. He is considering an MRI to further evaluate the shoulder injury. - Constitutional Vitals: Temp Pulse Resp BP Pulse Ox 98.5 F 67 18 135/71 93 09/30/16 07:13 09/30/16 07:13 09/30/16 07:13 09/30/16 07:13 09/30/16 07:13 Exam: She is resting comfortably in bed. Her affect is bright and cheerful. She has no extremity edema. I reviewed her medications and lab results. Internal Medicine: Result - Labs CBC & Chem 7: 09/29/16 07:02 09/29/16 07:02 - ABG Interpretation ABG results: PT/INR, D-dimer PT 12.7 Seconds (9.4-12.1) H 09/29/16 07:02 Consult Discharge Plan - Plan Referrals: NO,PCP [Primary Care Provider] - 1 week
[2016-09-30] MEDS ORDERED: Bisacodyl 10 MG RECTAL SUPPOSITORY RC ONE (17:30)
[2016-10-01] MEDS: Gabapentin 100 MG CAPSULE PO PRN (02:33)
[2016-10-01] MEDS: *HR* OxyCODONE/APAP 5/325 TABLET PO SCH ×3 (03:54→08:13)
[2016-10-01] MEDS: Aspirin 81 MG TAB.CHEW PO SCH (08:22)
[2016-10-01] MEDS: Cholecalciferol (D-3) 1,000 UNIT TABLET PO SCH (08:24)
[2016-10-01] MEDS: *HR* Rivaroxaban 10 MG TABLET PO SCH (08:24)
[2016-10-01] MEDS: Insulin LISPRO 300 UNITS/3 ML VIAL SQ SCH ×4 (08:28→18:06)
[2016-10-01] MEDS ORDERED: ALPRAZolam 0.5 MG TABLET PO PRN (08:51)
[2016-10-01] MEDS: Insulin DETEMIR 100 UNIT/ML X5UNITS SQ SCH (09:12)
[2016-10-01] MEDS: Methyl Salicylate/Menthol 28 GM TUBE TP SCH ×3 (09:13→22:07)
[2016-10-01 09:50] LABS: Bilirubin,Urine Negative (Negative); Blood,Urine Negative (Negative); Clarity,Urine Clear (Clear); Color,Urine Yellow (Yellow); Glucose,Urine (UA) Normal (Normal); Ketones,Urine Negative (Negative); Leukocyte Esterase,Urine Negative (Negative); Nitrite,Urine Negative (Negative); PH,Urine 7.5 pH Units (5.0-8.0); Protein,Urine Negative (Neg-Trace); Specific Gravity,Urine 1.015 (1.010-1.025); Urobilinogen,Urine Normal (Normal)
[2016-10-01] MEDS: amLODIPine 5 MG TABLET PO SCH ×2 (10:33→22:05)
[2016-10-01] MEDS: *HR* OxyCODONE/APAP 10/325 TABLET PO SCH ×3 (13:13→22:05)
[2016-10-01] MEDS: MOM Conc 10 ML UD.LIQ PO SCH (22:06)
[2016-10-01] MEDS: Ondansetron ODT 4 MG TAB.RAPDIS SL PRN (23:37)
[2016-10-02] MEDS: *HR* OxyCODONE/APAP 10/325 TABLET PO SCH ×6 (02:12→21:30)
[2016-10-02] MEDS: Insulin LISPRO 300 UNITS/3 ML VIAL SQ SCH ×3 (08:24→16:58)
[2016-10-02] MEDS: Aspirin 81 MG TAB.CHEW PO SCH (08:26)
[2016-10-02] MEDS: Methyl Salicylate/Menthol 28 GM TUBE TP SCH ×2 (08:26→21:31)
[2016-10-02] MEDS: Cholecalciferol (D-3) 1,000 UNIT TABLET PO SCH (08:29)
[2016-10-02] MEDS: amLODIPine 5 MG TABLET PO SCH ×2 (08:29→21:29)
[2016-10-02] MEDS: *HR* Rivaroxaban 10 MG TABLET PO SCH (08:29)
[2016-10-02] MEDS: Insulin DETEMIR 100 UNIT/ML X5UNITS SQ SCH (09:14)
--- NOTE | 2016-10-02 11:35 | Internal Med Progress Note ---
Date of Encounter: 10/02/16 Time of Encounter: 11:25 - Assessment and plan (1) Fracture, humerus, proximal Current Visit: No Status: Acute Assessment and plan: September 30. Continue therapy intervention, arm immobilization, and Percocet October 02. We will add Duragesic patch and schedule gabapentin 200 mg 3 times a day Qualifiers: Encounter type: initial encounter Fracture type: closed Fracture morphology: other fracture Fracture alignment: displaced Laterality: left Qualified Code(s): S42.292A - Other displaced fracture of upper end of left humerus, initial encounter for closed fracture (2) DM type 2 (diabetes mellitus, type 2) Current Visit: No Status: Chronic Assessment and plan: September 30. Continue Levemir and Accu-Cheks with SSI. Qualifiers: Diabetes mellitus complication status: with kidney complications Diabetes mellitus complication detail: with chronic kidney disease Diabetes mellitus detention insulin use: with detention use Chronic kidney disease stage: stage 3 (moderate) Qualified Code(s): E11.22 - Type 2 diabetes mellitus with diabetic chronic kidney disease; N18.3 - Chronic kidney disease, stage 3 ( moderate); Z79.4 - ferry terminal supervisor (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 of insulin (3) CKD (chronic kidney disease) stage 3, GFR 30-59 ml/min Current Visit: No Status: Chronic Assessment and plan: September 30. We will monitor renal indices. October 02. Recheck labs in a.m. (4) Hypertension Current Visit: No Status: Chronic Assessment and plan: September 30. Continue Norvasc and Lopressor. Remain off hydrochlorothiazide and lisinopril. October 02. Continue present regimen. Qualifiers: Hypertension type: essential hypertension Qualified Code(s): I10 - Essential (primary) hypertension - Subjective Interval history: September 30. She was hospitalized in acute care at [facility] September 24 after presenting with impacted left humerous fracture. She was treated nonsurgically. PT and OT evaluations and ongoing interventions were done. She was discharged to swing bed for ongoing therapy. She has been changed from [place] to Percocet and states her pain has lessened. She saw Dr. Moore who changed her to a different left arm immobilization sling. He is considering an MRI to further evaluate the shoulder injury. October 02. She plans of ongoing pain in her left shoulder. She also has nausea. - Constitutional Vitals: Temp Pulse Resp BP Pulse Ox 97.8 F 67 20 158/82 93 10/02/16 11:32 10/02/16 11:32 10/02/16 11:32 10/02/16 11:32 10/02/16 11:32 Exam: She is lying in bed and appears to be in at least mild pain. She is wearing the left arm immobilizer. I reviewed her medications and lab results. Internal Medicine: Result - Labs CBC & Chem 7: 09/29/16 07:02 09/29/16 07:02 - ABG Interpretation ABG results: PT/INR, D-dimer PT 12.7 Seconds (9.4-12.1) H 09/29/16 07:02 Consult Discharge Plan - Plan Referrals: NO,PCP [Primary Care Provider] - 1 week
[2016-10-02] MEDS: *HR* FentaNYL PATCH 12 MCG PATCH TD SCH (12:37)
[2016-10-02] MEDS ORDERED: Gabapentin 100 MG CAPSULE PO SCH (15:00)
[2016-10-02] MEDS: Gabapentin 100 MG CAPSULE PO SCH ×2 (16:53→21:29)
[2016-10-03 05:35] LABS: Basophils % 0.5 %; Eosinophils # 0.3 K/mcL (0.0-0.6); Eosinophils % 3.9 %; Hematocrit 33.6 % (35.3-44.9); Hemoglobin 10.9 g/dL (11.5-15.4); Immature Granulocytes % 0.6 % (0-4); Lymphocytes # 2.6 K/mcL (0.6-4.6); Mean Corpuscular HGB Conc 32.4 g/dL (31.6-35.5); Mean Corpuscular Hemoglobin 32.2 pg (28.0-33.3); Mean Corpuscular Volume 99.1 fL (83.0-100.0); Mean Platelet Volume 10.7 fL (9.4-12.4); Monocytes # 0.9 K/mcL (0.0-1.3); Monocytes % 11.8 %; Neutrophils # 3.9 K/mcL (1.6-8.9); Platelet Count 349 K/mcL (140-400); Red Blood Count 3.39 M/mcL (3.82-4.97); Red Cell Distribution Width 13.6 % (11.5-14.5); Segmented Neutrophils % 50.2 %
[2016-10-03] MEDS: *HR* OxyCODONE/APAP 10/325 TABLET PO SCH ×6 (05:44→20:57)
[2016-10-03 05:51] LABS: Calcium 8.5 mg/dL (8.6-10.8); Potassium 3.9 mEq/L (3.5-4.5)
[2016-10-03] MEDS: amLODIPine 5 MG TABLET PO SCH ×2 (08:15→20:58)
[2016-10-03] MEDS: Cholecalciferol (D-3) 1,000 UNIT TABLET PO SCH (08:15)
[2016-10-03] MEDS: Gabapentin 100 MG CAPSULE PO SCH ×4 (08:15→20:57)
[2016-10-03] MEDS: *HR* Rivaroxaban 10 MG TABLET PO SCH (08:15)
[2016-10-03] MEDS: Methyl Salicylate/Menthol 28 GM TUBE TP SCH ×2 (08:16→20:59)
[2016-10-03] MEDS: Aspirin 81 MG TAB.CHEW PO SCH (08:20)
[2016-10-03] MEDS: Insulin LISPRO 300 UNITS/3 ML VIAL SQ SCH ×4 (08:20→20:58)
[2016-10-03] MEDS: Insulin DETEMIR 100 UNIT/ML X5UNITS SQ SCH (11:53)
[2016-10-03] MEDS: MOM Conc 10 ML UD.LIQ PO SCH (20:57)
[2016-10-04] MEDS: *HR* OxyCODONE/APAP 10/325 TABLET PO SCH ×7 (05:18→23:22)
[2016-10-04] MEDS: Insulin LISPRO 300 UNITS/3 ML VIAL SQ SCH ×4 (07:34→21:00)
[2016-10-04] MEDS: Ondansetron ODT 4 MG TAB.RAPDIS SL PRN (08:18)
[2016-10-04] MEDS: Aspirin 81 MG TAB.CHEW PO SCH (08:19)
[2016-10-04] MEDS: Cholecalciferol (D-3) 1,000 UNIT TABLET PO SCH (08:19)
[2016-10-04] MEDS: *HR* Rivaroxaban 10 MG TABLET PO SCH (08:19)
[2016-10-04] MEDS: Gabapentin 100 MG CAPSULE PO SCH ×3 (08:20→20:46)
[2016-10-04] MEDS: amLODIPine 5 MG TABLET PO SCH ×2 (08:20→20:46)
[2016-10-04] MEDS: Methyl Salicylate/Menthol 28 GM TUBE TP SCH ×2 (08:25→20:48)
[2016-10-04] MEDS: Insulin DETEMIR 100 UNIT/ML X5UNITS SQ SCH (09:57)
--- NOTE | 2016-10-04 12:16 | Internal Med Progress Note ---
Date of Encounter: 10/04/16 Time of Encounter: 12:00 - Assessment and plan (1) Fracture, humerus, proximal Current Visit: No Status: Acute Assessment and plan: September 30. Continue therapy intervention, arm immobilization, and Percocet October 02. We will add Duragesic patch and schedule gabapentin 200 mg 3 times a day October 04. Continue present regimen Qualifiers: Encounter type: initial encounter Fracture type: closed Fracture morphology: other fracture Fracture alignment: displaced Laterality: left Qualified Code(s): S42.292A - Other displaced fracture of upper end of left humerus, initial encounter for closed fracture (2) DM type 2 (diabetes mellitus, type 2) Current Visit: No Status: Chronic Assessment and plan: September 30. Continue Levemir and Accu-Cheks with SSI. 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 We will monitor renal indices. October 02. Recheck labs in a.m. October 04. Estimated GFR slightly improved to 45 on 10/03/2016. Continue present management (4) Hypertension Current Visit: No Status: Chronic Assessment and plan: September 30. Continue Norvasc and Lopressor. Remain off hydrochlorothiazide and lisinopril. October 02. Continue present regimen. October 04. Continue Norvasc and Lopressor. We will restart lisinopril since no significant change in azotemia on withholding it. Qualifiers: Hypertension type: essential hypertension Qualified Code(s): I10 - Essential (primary) hypertension (5) Constipation Current Visit: Yes Status: Acute Assessment and plan: October 04. Continue Colace and scheduled MOM. We will give Dulcolax suppository every 48 hours also Qualifiers: Constipation type: unspecified constipation type Qualified Code(s): K59.00 - Constipation, unspecified - Subjective Interval history: September 30. She was hospitalized in acute care at [facility] September 24- after presenting with impacted left humerous fracture. She was treated nonsurgically. PT and OT evaluations and ongoing interventions were done. She was discharged to swing bed for ongoing therapy. She has been changed from [place] to Percocet and states her pain has lessened. She saw Dr. Moore who changed her to a different left arm immobilization sling. He is considering an MRI to further evaluate the shoulder injury. October 02. She plans of ongoing pain in her left shoulder. She also has nausea. October 04. She states her shoulder pain is better. She reports constipation. - Constitutional Vitals: Temp Pulse Resp BP Pulse Ox 97.9 F 75 18 151/69 93 10/04/16 06:43 10/04/16 06:43 10/04/16 06:43 10/04/16 06:43 10/04/16 06:43 Exam: She is anxious and almost tearful as she describes her constipation. She has taken MOM and Colace without satisfactory results in swing bed. Internal Medicine: Result - Labs CBC & Chem 7: 10/03/16 04:55 10/03/16 04:55 - ABG Interpretation ABG results: PT/INR, D-dimer PT 12.7 Seconds (9.4-12.1) H 09/29/16 07:02 Consult Discharge Plan - Plan Referrals: NO,PCP [Primary Care Provider] - 1 week
[2016-10-04] MEDS: Bisacodyl 10 MG RECTAL SUPPOSITORY RC SCH (14:35)
[2016-10-05] MEDS: *HR* OxyCODONE/APAP 10/325 TABLET PO SCH ×5 (03:52→20:05)
[2016-10-05] MEDS: Gabapentin 100 MG CAPSULE PO SCH ×5 (08:20→20:06)
[2016-10-05] MEDS: amLODIPine 5 MG TABLET PO SCH ×2 (08:20→20:06)
[2016-10-05] MEDS: Cholecalciferol (D-3) 1,000 UNIT TABLET PO SCH (08:20)
[2016-10-05] MEDS: Aspirin 81 MG TAB.CHEW PO SCH (08:21)
[2016-10-05] MEDS: *HR* Rivaroxaban 10 MG TABLET PO SCH (08:21)
[2016-10-05] MEDS: Ondansetron ODT 4 MG TAB.RAPDIS SL PRN ×2 (08:26→12:17)
[2016-10-05] MEDS: Insulin LISPRO 300 UNITS/3 ML VIAL SQ SCH ×4 (08:26→20:07)
[2016-10-05] MEDS: Methyl Salicylate/Menthol 28 GM TUBE TP SCH ×2 (08:29→20:07)
[2016-10-05] MEDS: Insulin DETEMIR 100 UNIT/ML X5UNITS SQ SCH (09:14)
[2016-10-05] MEDS: *HR* FentaNYL PATCH 12 MCG PATCH TD SCH (12:18)
[2016-10-05] MEDS: MOM Conc 10 ML UD.LIQ PO SCH (20:06)
[2016-10-06] MEDS: *HR* OxyCODONE/APAP 10/325 TABLET PO SCH ×6 (04:10→21:28)
[2016-10-06] MEDS: Insulin LISPRO 300 UNITS/3 ML VIAL SQ SCH ×4 (08:06→21:26)
[2016-10-06] MEDS: Aspirin 81 MG TAB.CHEW PO SCH (08:15)
[2016-10-06] MEDS: Cholecalciferol (D-3) 1,000 UNIT TABLET PO SCH (08:16)
[2016-10-06] MEDS: amLODIPine 5 MG TABLET PO SCH ×2 (08:16→21:26)
[2016-10-06] MEDS: Gabapentin 100 MG CAPSULE PO SCH ×3 (08:16→21:26)
[2016-10-06] MEDS: *HR* Rivaroxaban 10 MG TABLET PO SCH (08:27)
[2016-10-06] MEDS: Insulin DETEMIR 100 UNIT/ML X5UNITS SQ SCH (08:27)
[2016-10-06] MEDS: Methyl Salicylate/Menthol 28 GM TUBE TP SCH ×2 (08:28→21:28)
[2016-10-06] MEDS: Ondansetron ODT 4 MG TAB.RAPDIS SL PRN ×3 (08:42→21:34)
[2016-10-06] MEDS: Bisacodyl 10 MG RECTAL SUPPOSITORY RC SCH (12:36)
--- NOTE | 2016-10-06 17:12 | Internal Med Progress Note ---
Date of Encounter: 10/06/16 Time of Encounter: 17:05 - Assessment and plan (1) Fracture, humerus, proximal Current Visit: No Status: Acute Assessment and plan: September 30. Continue therapy intervention, arm immobilization, and Percocet October 02. We will add Duragesic patch and schedule gabapentin 200 mg 3 times a day October 04. Continue present regimen October 4. Continue present regimen. We will let orthopedist determine further intervention if needed on the humerus fracture. Qualifiers: Encounter type: initial encounter Fracture type: closed Fracture morphology: other fracture Fracture alignment: displaced Laterality: left Qualified Code(s): S42.292A - Other displaced fracture of upper end of left humerus, initial encounter for closed fracture (2) DM type 2 (diabetes mellitus, type 2) Current Visit: No Status: Chronic Assessment and plan: September 30. Continue Levemir and Accu-Cheks with SSI. October 06. Hememoglobin A1c was 8.0% on 09/26/2016. Continue Levemir and Accu- Cheks with SSI. 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 We will monitor renal indices. October 02. Recheck labs in a.m. October 04. Estimated GFR slightly improved to 45 on 10/03/2016. Continue present management (4) Hypertension Current Visit: No Status: Chronic Assessment and plan: September 30. Continue Norvasc and Lopressor. Remain off hydrochlorothiazide and lisinopril. October 02. Continue present regimen. October 04. Continue Norvasc and Lopressor. We will restart lisinopril since no significant change in azotemia on withholding it. October 06. Continue Norvasc, Lopressor, and lisinopril. Qualifiers: Hypertension type: essential hypertension Qualified Code(s): I10 - Essential (primary) hypertension (5) Constipation Current Visit: Yes Status: Acute Assessment and plan: October 2. Continue Colace and scheduled MOM. We will give Dulcolax suppository every 48 hours also October 06. Significantly improved. Continue present regimen Qualifiers: Constipation type: unspecified constipation type Qualified Code(s): K59.00 - Constipation, unspecified - Subjective Interval history: September 30. She was hospitalized in acute care at [facility] September 24- after presenting with impacted left humerous fracture. She was treated nonsurgically. PT and OT evaluations and ongoing interventions were done. She was discharged to swing bed for ongoing therapy. She has been changed from [place] to Percocet and states her pain has lessened. She saw Dr. Moore who changed her to a different left arm immobilization sling. He is considering an MRI to further evaluate the shoulder injury. October 02. She plans of ongoing pain in her left shoulder. She also has nausea. October 04. She states her shoulder pain is better. She reports constipation. October for. She states her shoulder pain is gradually improving. Her constipation has resolved and she feels significantly better in her bowels. - Constitutional Vitals: Temp Pulse Resp BP Pulse Ox 97.8 F 67 18 139/62 94 10/06/16 07:57 10/06/16 15:23 10/06/16 15:23 10/06/16 15:23 10/06/16 15:23 Exam: She is pleasant and talkative. She appears in no acute pain. She is eating supper on the side of bed at this time. The left shoulder immobilizer is in place. I reviewed the MRI report of her shoulder. I reviewed her medications and lab results. Internal Medicine: Result - Labs CBC & Chem 7: 10/03/16 04:55 10/03/16 04:55 - ABG Interpretation ABG results: PT/INR, D-dimer PT 12.7 Seconds (9.4-12.1) H 09/29/16 07:02 Consult Discharge Plan - Plan Referrals: NO,PCP [Primary Care Provider] - 1 week
[2016-10-07] MEDS: *HR* OxyCODONE/APAP 10/325 TABLET PO SCH ×7 (03:47→23:33)
[2016-10-07] MEDS: Ondansetron ODT 4 MG TAB.RAPDIS SL PRN ×2 (06:58→12:06)
[2016-10-07] MEDS: Insulin LISPRO 300 UNITS/3 ML VIAL SQ SCH ×4 (08:05→23:35)
[2016-10-07] MEDS: Cholecalciferol (D-3) 1,000 UNIT TABLET PO SCH (08:06)
[2016-10-07] MEDS: Gabapentin 100 MG CAPSULE PO SCH ×3 (08:06→23:33)
[2016-10-07] MEDS: amLODIPine 5 MG TABLET PO SCH ×2 (08:06→23:32)
[2016-10-07] MEDS: *HR* Rivaroxaban 10 MG TABLET PO SCH (08:06)
[2016-10-07] MEDS: Aspirin 81 MG TAB.CHEW PO SCH (08:06)
[2016-10-07] MEDS: Methyl Salicylate/Menthol 28 GM TUBE TP SCH ×2 (08:08→23:31)
[2016-10-07] MEDS: Insulin DETEMIR 100 UNIT/ML X5UNITS SQ SCH (09:45)
[2016-10-07] MEDS: MOM Conc 10 ML UD.LIQ PO SCH (23:33)
[2016-10-08] MEDS: *HR* OxyCODONE/APAP 10/325 TABLET PO SCH ×5 (04:59→23:10)
[2016-10-08] MEDS: Insulin LISPRO 300 UNITS/3 ML VIAL SQ SCH ×4 (08:11→23:11)
[2016-10-08] MEDS: Insulin DETEMIR 100 UNIT/ML X5UNITS SQ SCH ×2 (08:13→11:15)
[2016-10-08] MEDS: Gabapentin 100 MG CAPSULE PO SCH ×3 (08:22→23:11)
[2016-10-08] MEDS: Aspirin 81 MG TAB.CHEW PO SCH (08:22)
[2016-10-08] MEDS: Cholecalciferol (D-3) 1,000 UNIT TABLET PO SCH (08:22)
[2016-10-08] MEDS: amLODIPine 5 MG TABLET PO SCH ×2 (08:22→23:14)
[2016-10-08] MEDS: *HR* Rivaroxaban 10 MG TABLET PO SCH (08:23)
[2016-10-08] MEDS: Ondansetron ODT 4 MG TAB.RAPDIS SL PRN (08:32)
[2016-10-08] MEDS: Methyl Salicylate/Menthol 28 GM TUBE TP SCH ×2 (08:32→23:10)
[2016-10-08] MEDS: *HR* FentaNYL PATCH 12 MCG PATCH TD SCH (13:00)
[2016-10-08] MEDS: Bisacodyl 10 MG RECTAL SUPPOSITORY RC SCH (13:00)
[2016-10-09] MEDS: *HR* OxyCODONE/APAP 10/325 TABLET PO SCH ×6 (02:27→22:38)
[2016-10-09] MEDS: amLODIPine 5 MG TABLET PO SCH ×2 (08:54→22:38)
[2016-10-09] MEDS: *HR* Rivaroxaban 10 MG TABLET PO SCH (08:54)
[2016-10-09] MEDS: Cholecalciferol (D-3) 1,000 UNIT TABLET PO SCH (08:54)
[2016-10-09] MEDS: Aspirin 81 MG TAB.CHEW PO SCH (08:54)
[2016-10-09] MEDS: Gabapentin 100 MG CAPSULE PO SCH ×3 (08:55→22:38)
[2016-10-09] MEDS: Methyl Salicylate/Menthol 28 GM TUBE TP SCH ×2 (09:09→22:40)
[2016-10-09] MEDS: Insulin LISPRO 300 UNITS/3 ML VIAL SQ SCH ×4 (09:09→22:39)
[2016-10-09] MEDS: Insulin DETEMIR 100 UNIT/ML X5UNITS SQ SCH (09:10)
[2016-10-09] MEDS: Ondansetron ODT 4 MG TAB.RAPDIS SL PRN (16:02)
[2016-10-09] MEDS: MOM Conc 10 ML UD.LIQ PO SCH (22:39)
[2016-10-10] MEDS: *HR* OxyCODONE/APAP 10/325 TABLET PO SCH ×6 (05:11→21:56)
[2016-10-10] MEDS: Insulin LISPRO 300 UNITS/3 ML VIAL SQ SCH ×4 (07:53→21:57)
[2016-10-10] MEDS: Ondansetron ODT 4 MG TAB.RAPDIS SL PRN (07:58)
[2016-10-10] MEDS: Aspirin 81 MG TAB.CHEW PO SCH (09:37)
[2016-10-10] MEDS: Gabapentin 100 MG CAPSULE PO SCH ×3 (09:37→21:57)
[2016-10-10] MEDS: *HR* Rivaroxaban 10 MG TABLET PO SCH (09:37)
[2016-10-10] MEDS: Cholecalciferol (D-3) 1,000 UNIT TABLET PO SCH (09:37)
[2016-10-10] MEDS: Insulin DETEMIR 100 UNIT/ML X5UNITS SQ SCH (09:38)
[2016-10-10] MEDS: Methyl Salicylate/Menthol 28 GM TUBE TP SCH ×2 (09:38→21:59)
[2016-10-10] MEDS: amLODIPine 5 MG TABLET PO SCH ×2 (09:38→21:56)
[2016-10-10] MEDS: Bisacodyl 10 MG RECTAL SUPPOSITORY RC SCH (12:31)
--- NOTE | 2016-10-10 15:53 | Internal Med Progress Note ---
Date of Encounter: 10/10/16 Time of Encounter: 15:45 - Assessment and plan (1) Fracture, humerus, proximal Current Visit: No Status: Acute Assessment and plan: September 30. Continue therapy intervention, arm immobilization, and Percocet October 02. We will add Duragesic patch and schedule gabapentin 200 mg 3 times a day October 04. Continue present regimen October 06. Continue present regimen. We will let orthopedist determine further intervention if needed on the humerus fracture. October 10. She is scheduled to see the orthopedist tomorrow. She will be able to go by private car Qualifiers: Encounter type: initial encounter Fracture type: closed Fracture morphology: other fracture Fracture alignment: displaced Laterality: left Qualified Code(s): S42.292A - Other displaced fracture of upper end of left humerus, initial encounter for closed fracture (2) DM type 2 (diabetes mellitus, type 2) Current Visit: No Status: Chronic Assessment and plan: September 30. Continue Levemir and Accu-Cheks with SSI. October 06. Hememoglobin A1c was 8.0% on 09/26/2016. Continue Levemir and Accu- Cheks with SSI. Qualifiers: Diabetes mellitus complication status: with kidney complications Diabetes mellitus complication detail: with chronic kidney disease Diabetes mellitus custodial insulin use: with custodial use Chronic kidney disease stage: stage 3 (moderate) Qualified Code(s): E11.22 - Type 2 diabetes mellitus with diabetic chronic kidney disease; N18.3 - Chronic kidney disease, stage 3 ( moderate); Z79.4 - labor commissioner (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 of insulin (3) CKD (chronic kidney disease) stage 3, GFR 30-59 ml/min Current Visit: No Status: Chronic Assessment and plan: September 30. We will monitor renal indices. October 02. Recheck labs in a.m. October 04. Estimated GFR slightly improved to 45 on 10/03/2016. Continue present management (4) Hypertension Current Visit: No Status: Chronic Assessment and plan: September 30. Continue Norvasc and Lopressor. Remain off hydrochlorothiazide and lisinopril. October 02. Continue present regimen. October 2. Continue Norvasc and Lopressor. We will restart lisinopril since no significant change in azotemia on withholding it. October 06. Continue Norvasc, Lopressor, and lisinopril. Qualifiers: Hypertension type: essential hypertension Qualified Code(s): I10 - Essential (primary) hypertension (5) Constipation Current Visit: Yes Status: Acute Assessment and plan: October 04. Continue Colace and scheduled MOM. We will give Dulcolax suppository every 48 hours also October 06. Significantly improved. Continue present regimen Qualifiers: Constipation type: unspecified constipation type Qualified Code(s): K59.00 - Constipation, unspecified - Subjective Interval history: September 30. She was hospitalized in acute care at [facility] September 24 after presenting with impacted left humerous fracture. She was treated nonsurgically. PT and OT evaluations and ongoing interventions were done. She was discharged to swing bed for ongoing therapy. She has been changed from [place] to Percocet and states her pain has lessened. She saw Dr. Moore who changed her to a different left arm immobilization sling. He is considering an MRI to further evaluate the shoulder injury. October 02. She plans of ongoing pain in her left shoulder. She also has nausea. October 04. She states her shoulder pain is better. She reports constipation. October 06. She states her shoulder pain is gradually improving. Her constipation has resolved and she feels significantly better in her bowels. October 10. She has no new complaints. The shoulder pain is stable and constipation remains resolved. - Constitutional Vitals: Temp Pulse Resp BP Pulse Ox 98.0 F 59 16 124/48 98 10/10/16 09:10 10/10/16 11:41 10/10/16 11:41 10/10/16 11:41 10/10/16 11:41 Exam: She is resting comfortably in bed. Her affect is bright and cheerful. There is no extremity edema. I reviewed her medications and lab results. Internal Medicine: Result - Labs CBC & Chem 7: 10/03/16 04:55 10/03/16 04:55 - ABG Interpretation ABG results: PT/INR, D-dimer PT 12.7 Seconds (9.4-12.1) H 09/29/16 07:02 Consult Discharge Plan - Plan Referrals: NO,PCP [Primary Care Provider] - 1 week
[2016-10-10] MEDS: Loratadine 10 MG TABLET PO PRN (17:59)
[2016-10-10] MEDS: Oxymetazoline Nasal SPRAY BOTTLE NS PRN (18:00)
[2016-10-11] MEDS: *HR* OxyCODONE/APAP 10/325 TABLET PO SCH ×6 (01:56→22:12)
[2016-10-11] MEDS: Oxymetazoline Nasal SPRAY BOTTLE NS PRN (08:19)
[2016-10-11] MEDS: Insulin LISPRO 300 UNITS/3 ML VIAL SQ SCH ×4 (08:20→20:02)
[2016-10-11] MEDS: Aspirin 81 MG TAB.CHEW PO SCH (08:20)
[2016-10-11] MEDS: Gabapentin 100 MG CAPSULE PO SCH ×3 (08:21→20:01)
[2016-10-11] MEDS: Insulin DETEMIR 100 UNIT/ML X5UNITS SQ SCH (08:21)
[2016-10-11] MEDS: Methyl Salicylate/Menthol 28 GM TUBE TP SCH ×2 (08:21→20:02)
[2016-10-11] MEDS: *HR* Rivaroxaban 10 MG TABLET PO SCH (08:22)
[2016-10-11] MEDS: Cholecalciferol (D-3) 1,000 UNIT TABLET PO SCH (08:22)
[2016-10-11] MEDS: amLODIPine 5 MG TABLET PO SCH ×2 (08:22→20:01)
[2016-10-11] MEDS: Loratadine 10 MG TABLET PO PRN (08:24)
[2016-10-11] MEDS: *HR* FentaNYL PATCH 12 MCG PATCH TD SCH (13:59)
[2016-10-11] MEDS: MOM Conc 10 ML UD.LIQ PO SCH (20:01)
[2016-10-12] MEDS: *HR* OxyCODONE/APAP 10/325 TABLET PO SCH ×6 (01:57→22:40)
[2016-10-12] MEDS: Aspirin 81 MG TAB.CHEW PO SCH (08:17)
[2016-10-12] MEDS: Gabapentin 100 MG CAPSULE PO SCH ×3 (08:18→22:40)
[2016-10-12] MEDS: amLODIPine 5 MG TABLET PO SCH ×2 (08:18→22:40)
[2016-10-12] MEDS: Cholecalciferol (D-3) 1,000 UNIT TABLET PO SCH (08:19)
[2016-10-12] MEDS: *HR* Rivaroxaban 10 MG TABLET PO SCH (08:21)
[2016-10-12] MEDS: Insulin LISPRO 300 UNITS/3 ML VIAL SQ SCH ×4 (08:26→22:45)
[2016-10-12] MEDS: Bisacodyl 10 MG RECTAL SUPPOSITORY RC SCH (14:22)
[2016-10-12] MEDS: Methyl Salicylate/Menthol 28 GM TUBE TP SCH ×2 (16:40→22:44)
[2016-10-12] MEDS: Insulin DETEMIR 100 UNIT/ML X5UNITS SQ SCH (19:19)
[2016-10-13] MEDS: *HR* OxyCODONE/APAP 10/325 TABLET PO SCH ×6 (06:26→23:01)
[2016-10-13] MEDS: *HR* Rivaroxaban 10 MG TABLET PO SCH (07:56)
[2016-10-13] MEDS: amLODIPine 5 MG TABLET PO SCH ×2 (07:58→21:27)
[2016-10-13] MEDS: Aspirin 81 MG TAB.CHEW PO SCH (07:58)
[2016-10-13] MEDS: Gabapentin 100 MG CAPSULE PO SCH ×3 (08:00→21:27)
[2016-10-13] MEDS: Cholecalciferol (D-3) 1,000 UNIT TABLET PO SCH (08:00)
[2016-10-13] MEDS: Insulin LISPRO 300 UNITS/3 ML VIAL SQ SCH ×4 (08:05→21:27)
[2016-10-13] MEDS: Insulin DETEMIR 100 UNIT/ML X5UNITS SQ SCH (08:06)
[2016-10-13] MEDS: Methyl Salicylate/Menthol 28 GM TUBE TP SCH ×2 (10:41→21:28)
--- NOTE | 2016-10-13 12:28 | Internal Med Progress Note ---
Date of Encounter: 10/13/16 Time of Encounter: 12:20 - Assessment and plan (1) Fracture, humerus, proximal Current Visit: No Status: Acute Assessment and plan: September 30. Continue therapy intervention, arm immobilization, and Percocet October 02. We will add Duragesic patch and schedule gabapentin 200 mg 3 times a day October 04. Continue present regimen October 06. Continue present regimen. We will let orthopedist determine further intervention if needed on the humerus fracture. October 10. She is scheduled to see the orthopedist tomorrow. She will be able to go by private car October 13. The orthopedist did not feel surgery was indicated at this time. Anticipate discharge home tomorrow with home health services. Qualifiers: Encounter type: initial encounter Fracture type: closed Fracture morphology: other fracture Fracture alignment: displaced Laterality: left Qualified Code(s): S42.292A - Other displaced fracture of upper end of left humerus, initial encounter for closed fracture (2) DM type 2 (diabetes mellitus, type 2) Current Visit: No Status: Chronic Assessment and plan: September 30. Continue Levemir and Accu-Cheks with SSI. October 06. Hemoglobin A1c was 8.0% on 09/26/2016. Continue Levemir and Accu-Cheks with SSI. Qualifiers: Diabetes mellitus complication status: with kidney complications Diabetes mellitus complication detail: with chronic kidney disease Diabetes mellitus intermediate manager insulin use: with long-term use Chronic kidney disease stage: stage 3 (moderate) Qualified Code(s): E11.22 - Type 2 diabetes mellitus with diabetic chronic kidney disease; N18.3 - Chronic kidney disease, stage 3 ( moderate); Z79.4 - intermodal customer service (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 of insulin (3) CKD (chronic kidney disease) stage 3, GFR 30-59 ml/min Current Visit: No Status: Chronic Assessment and plan: September 30. We will monitor renal indices. October 02. Recheck labs in a.m. October 04. Estimated GFR slightly improved to 45 on 10/03/2016. Continue present management (4) Hypertension Current Visit: No Status: Chronic Qualifiers: Hypertension type: essential hypertension Qualified Code(s): I10 - Essential (primary) hypertension (5) Constipation Current Visit: Yes Status: Acute Assessment and plan: October 04. Continue Colace and scheduled MOM. We will give Dulcolax suppository every 48 hours also October 06. Significantly improved. Continue present regimen Qualifiers: Constipation type: unspecified constipation type Qualified Code(s): K59.00 - Constipation, unspecified - Subjective Interval history: September 30. She was hospitalized in acute care at [facility] September 24- after presenting with impacted left humerous fracture. She was treated nonsurgically. PT and OT evaluations and ongoing interventions were done. She was discharged to swing bed for ongoing therapy. She has been changed from [place] to Percocet and states her pain has lessened. She saw Dr. Moore who changed her to a different left arm immobilization sling. He is considering an MRI to further evaluate the shoulder injury. October 02. She plans of ongoing pain in her left shoulder. She also has nausea. October 04. She states her shoulder pain is better. She reports constipation. October 06. She states her shoulder pain is gradually improving. Her constipation has resolved and she feels significantly better in her bowels. October 10. She has no new complaints. The shoulder pain is stable and constipation remains resolved. October 13. She complains of abdominal gas. - Constitutional Vitals: Temp Pulse Resp BP Pulse Ox 98.3 F 66 12 165/76 94 10/13/16 09:00 10/13/16 09:00 10/13/16 09:00 10/13/16 09:00 10/13/16 09:00 Exam: She is resting comfortably in bed and appears in no acute distress. Her left arm remains in the immobilizer sling. Her affect is overall bright and cheerful. I reviewed her medications and lab results. Internal Medicine: Result - Labs CBC & Chem 7: 10/03/16 04:55 10/03/16 04:55 - ABG Interpretation ABG results: PT/INR, D-dimer PT 12.7 Seconds (9.4-12.1) H 09/29/16 07:02 - VTE Documentation of Mechanical Device: Graduated compression elastic hosiery Consult Discharge Plan - Plan Referrals: NO,PCP [Primary Care Provider] - 1 week
[2016-10-13] MEDS: Simethicone 80 MG TAB.CHEW PO PRN (13:06)
[2016-10-13] MEDS ORDERED: SODIUM CHLORIDE/NAHCO3/KCL/PEG 4,000 ML SOLN.RECON PO ONE (14:20)
[2016-10-13] MEDS ORDERED: Preparation H Ointment 30 GM TUBE RC PRN (17:00)
[2016-10-13] MEDS: MOM Conc 10 ML UD.LIQ PO SCH (21:27)
[2016-10-14] MEDS: *HR* OxyCODONE/APAP 10/325 TABLET PO SCH ×3 (04:06→12:31)
[2016-10-14 06:42] VITALS: BP 159/66
[2016-10-14] MEDS: Insulin LISPRO 300 UNITS/3 ML VIAL SQ SCH ×2 (07:29→11:27)
[2016-10-14] MEDS: Gabapentin 100 MG CAPSULE PO SCH (08:01)
[2016-10-14] MEDS: Cholecalciferol (D-3) 1,000 UNIT TABLET PO SCH (08:02)
[2016-10-14] MEDS: *HR* Rivaroxaban 10 MG TABLET PO SCH (08:02)
[2016-10-14] MEDS: Insulin DETEMIR 100 UNIT/ML X5UNITS SQ SCH (08:03)
[2016-10-14] MEDS: amLODIPine 5 MG TABLET PO SCH (08:03)
[2016-10-14] MEDS: Aspirin 81 MG TAB.CHEW PO SCH (08:03)
[2016-10-14] MEDS: Methyl Salicylate/Menthol 28 GM TUBE TP SCH (08:05)
[2016-10-14] MEDS: Simethicone 80 MG TAB.CHEW PO PRN (09:55)
--- NOTE | 2016-10-14 11:27 | Discharge Summary ---
Date of Encounter: 10/14/16 Time of Encounter: 11:00 - Discharge Diagnosis (1) Fracture, humerus, proximal Priority: Primary Status: Acute Qualifiers: Encounter type: initial encounter Fracture type: closed Fracture morphology: other fracture Fracture alignment: displaced Laterality: left Qualified Code(s): S42.292A - Other displaced fracture of upper end of left humerus, initial encounter for closed fracture (2) DM type 2 (diabetes mellitus, type 2) Priority: Secondary Status: Chronic Qualifiers: Diabetes mellitus complication status: with kidney complications Diabetes mellitus complication detail: with chronic kidney disease Diabetes mellitus half-way insulin use: with termite control servicer use Chronic kidney disease stage: stage 3 (moderate) Qualified Code(s): E11.22 - Type 2 diabetes mellitus with diabetic chronic kidney disease; N18.3 - Chronic kidney disease, stage 3 ( moderate); Z79.4 - ocean transportation intermediary (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 of insulin (3) CKD (chronic kidney disease) stage 3, GFR 30-59 ml/min Priority: Secondary Status: Chronic (4) Hypertension Priority: Secondary Status: Chronic Qualifiers: Hypertension type: essential hypertension Qualified Code(s): I10 - Essential (primary) hypertension (5) Constipation Priority: Secondary Status: Acute Qualifiers: Constipation type: unspecified constipation type Qualified Code(s): K59.00 - Constipation, unspecified - Discharge Medications Prescriptions: FentaNYL PATCH [Duragesic] 12 mcg TD Q72H #2 patch.td72 Lidocaine Patch [Lidoderm 5% patch] 1 each TP DAILY #7 adh..patch OxyCODONE/APAP 10/325 [Percocet 10/325 MG] 1 each PO Q4H #20 tablet Home Medications: Aspirin 81 mg PO DAILY 10/03/15 [History] Cholecalciferol (Vitamin D3) [Vitamin D3] 2,000 unit PO DAILY 10/03/15 [History] Insulin ASPART [NovoLOG] See Protocol SQ TIDWM 10/03/15 [History] Insulin DETEMIR [Levemir] 16 unit SQ QAM 10/03/15 [History] Simvastatin [Zocor] 10 mg PO DAILY 10/03/15 [History] Gabapentin [Neurontin] 100 mg PO TID PRN 10/25/15 [History] Rivaroxaban [Xarelto] 10 mg PO DAILY 05/31/16 [History] amLODIPine [Norvasc] 5 mg PO BID #60 tablet 06/02/16 [Rx] Methyl Salicylate/Menthol [Bengay] 1 appl TP BID tube 09/27/16 [Rx] Metoprolol [Lopressor] 25 mg PO BID #0 09/27/16 [Rx] Lisinopril [Zestril] 40 mg PO DAILY 10/02/16 [History] hydroCHLOROthiazide [Hydrochlorothiazide] 12.5 mg PO DAILY 10/02/16 [History] FentaNYL PATCH [Duragesic] 12 mcg TD Q72H #2 patch.td72 10/14/16 [Rx] Lidocaine Patch [Lidoderm 5% patch] 1 each TP DAILY #7 adh..patch 10/14/16 [Rx] OxyCODONE/APAP 10/325 [Percocet 10/325 MG] 1 each PO Q4H #20 tablet 10/14/16 [Rx ] Allergies/Adverse Reactions: Allergies Penicillins [PCN] Allergy (Verified 10/25/15 12:19) Rash Date of admission: 09/28/16 17:40 Primary care physician: Cody Geronimo M.D. Consults: 09/28/16 17:46 Consult to Occupational Therapy [CONS] Routine Comment: Evaluate, develop and implement POC Consult to Physical Therapy [CONS] Routine Comment: Evaluate, develop and implement POC Consult to Gas Meter Checker [CONS] Routine Reason for SW Consult: discharge planning - Patient Status Disposition: Home Health Service Functional capacity at discharge: uses cane/walker Overall status at discharge: patient is progressing back to baseline - Discharge Instructions Follow Up With: Cody Geronimo MD [Partnered Physician] - 1 week - Diet and Activity Activity: as per physical therapy Diet: diabetic diet Hospital course: Ms. Pugh is a 85 year old female who was hospitalized in acute care at [facility] September 24 after presenting with impacted left humerous fracture. She was treated nonsurgically. PT and OT evaluations and ongoing interventions were done. She was discharged to swing bed for ongoing therapy. She had ongoing therapy interventions. Her pain level improved slightly during her hospital stay. She was treated with fentanyl patch, Percocet, Lidoderm patch, and Ben[place]. A shoulder MRI was ordered by Dr. Moore. She was referred to Dr. Sim for surgical evaluation but the decision was made to continue a non-operative conservative course at this time. She will continue to follow with orthopedist as directed. There were no other new problems and on October 14 she was stable for discharge home. She will follow with her PCP Dr. Cody Geronimo within 1 week. She will have home health nursing services ordered. - Time Spent with Patient Total time spent providing and/or coordinating discharge services: - Constitutional Vitals: Temp Pulse Resp BP Pulse Ox 98 F 60 15 159/66 95 10/14/16 06:00 10/14/16 06:00 10/14/16 06:00 10/14/16 06:00 10/14/16 06:00 - VTE Documentation of Mechanical Device: Graduated compression elastic hosiery
--- NOTE | 2016-10-14 11:33 | Physician Discharge Referral ---
Home Health/Hosp Referral Info Transfer to: Home Health Attending Provider: Elijah Provider in Charge Post Discharge: PCP (Cody Geronimo M.D.) - Diagnosis (1) Fracture, humerus, proximal Priority: Primary Status: Acute (2) DM type 2 (diabetes mellitus, type 2) Priority: Secondary Status: Chronic (3) CKD (chronic kidney disease) stage 3, GFR 30-59 ml/min Priority: Secondary Status: Chronic (4) Hypertension Priority: Secondary Status: Chronic (5) Constipation Priority: Secondary Status: Acute - Respiratory Orders Smoking Cessation: Smoking cessation has been advised. For more information, call the [place] Tobacco Quit Line at 7-308-WFWC-NOW. - Diet/Nutrition Diet/Nutrition Orders: No Concentrated Sweets - Activity Activity Orders: Walker - Services Needed Following services are medically necessary services: Nursing, Home Health Aide, Physical Therapy, Occupational Therapy - Transfer Medications Prescriptions: FentaNYL PATCH [Duragesic] 12 mcg TD Q72H #2 patch.td72 Lidocaine Patch [Lidoderm 5% patch] 1 each TP DAILY #7 adh..patch OxyCODONE/APAP 10/325 [Percocet 10/325 MG] 1 each PO Q4H #20 tablet Home Medications: Aspirin 81 mg PO DAILY 10/03/15 [History] Cholecalciferol (Vitamin D3) [Vitamin D3] 2,000 unit PO DAILY 10/03/15 [History] Insulin ASPART [NovoLOG] See Protocol SQ TIDWM 10/03/15 [History] Insulin DETEMIR [Levemir] 16 unit SQ QAM 10/03/15 [History] Simvastatin [Zocor] 10 mg PO DAILY 10/03/15 [History] Gabapentin [Neurontin] 100 mg PO TID PRN 10/25/15 [History] Rivaroxaban [Xarelto] 10 mg PO DAILY 05/31/16 [History] amLODIPine [Norvasc] 5 mg PO BID #60 tablet 06/02/16 [Rx] Methyl Salicylate/Menthol [Bengay] 1 appl TP BID tube 09/27/16 [Rx] Metoprolol [Lopressor] 25 mg PO BID #0 09/27/16 [Rx] Lisinopril [Zestril] 40 mg PO DAILY 10/02/16 [History] hydroCHLOROthiazide [Hydrochlorothiazide] 12.5 mg PO DAILY 10/02/16 [History] FentaNYL PATCH [Duragesic] 12 mcg TD Q72H #2 patch.td72 10/14/16 [Rx] Lidocaine Patch [Lidoderm 5% patch] 1 each TP DAILY #7 adh..patch 10/14/16 [Rx] OxyCODONE/APAP 10/325 [Percocet 10/325 MG] 1 each PO Q4H #20 tablet 10/14/16 [Rx ] Allergies/Adverse Reactions: Allergies Penicillins [PCN] Allergy (Verified 10/25/15 12:19) Rash Certification: Further, I certify that my clinical findings support that this patient is homebound (i.e. absences from home require considerable and taxing effort and are for medical reasons or rastafari services or infrequently or short duration when for other reasons) because: Homebound Reason: Leaving home requires considerable and taxing effort due to condition (Significant impairment walking ability) Attestation: My signature below is to certify that this patient is under my care and that I, or nurse practitioner, or a physician's middle school assistant principal working with me, has a face-to -face encounter with this patient.
[2016-10-14] MEDS: *HR* FentaNYL PATCH 12 MCG PATCH TD SCH (12:31)
== END 2016-10-14 12:48 | disposition home health service (06) | DRG 561 ==
LOC: INPPIK 17:18
PROVIDERS: ADMIT Internal Medicine; ATTEND Internal Medicine

== ENCOUNTER 2018-03-10 21:43 | Inpatient (IN) ==
--- NOTE | 2018-03-10 21:53 | Emergency Department Note ---
Disposition Clinical Impression: Generalized weakness, Acute on chronic renal insufficiency, Elevated troponin I level UTI (urinary tract infection) Qualifiers: Urinary tract infection type: acute cystitis Hematuria presence: without hematuria Qualified Code(s): N30.00 - Acute cystitis without hematuria Disposition: Admitted As Inpatient Condition: Fair Referrals: NONE,PCP [Non-Partnered Physician] - Forms: ED Satisfaction Letter Weakness HPI - General Chief complaint: ED Weakness Stated complaint: weakness Time Seen by Provider: 03/10/18 21:48 Source: patient, EMS Mode of arrival: EMS Limitations: physical limitation (Hard of hearing) Nursing Notes Reviewed: Yes Vital Signs Reviewed: Yes - History of Present Illness HPI Narrative: The patient presents with generalized weakness. She states "I cannot eat". She reports nausea without vomiting. She denies any headache or visual changes. She denies chest pain, cough or shortness of breath. She denies any abdominal pain. She has a feeling of generalized weakness. She denies a recent fall or injury. She states she has been on normal medicines. Patient seems to be hard of hearing but does follow all commands. She is been brought in by EMS with a documented blood sugar in the 200s and a blood sugar of 203 on arrival here. Pt Subjective Complaint: generalized weakness/fatigue Onset (ago): unknown Duration: gradually worsening Location: generalized Pain Severity: none - Related Data Home Medications Medication Instructions Recorded Confirmed Aspirin 81 mg PO DAILY 10/03/15 03/03/18 Insulin ASPART [NovoLOG] 4 - 10 unit SQ TIDWM PRN 10/03/15 03/03/18 Insulin DETEMIR [Levemir] 13 unit SQ QAM 10/03/15 03/03/18 Simvastatin [Zocor] 10 mg PO DAILY 10/03/15 03/03/18 Lisinopril [Zestril] 40 mg PO DAILY 10/02/16 03/03/18 Polyethylene Glycol 3350 [MiraLAX 17 gm PO DAILY PRN 01/21/17 03/03/18 Powder Bulk 17.9 Oz] Hydrochlorothiazide [Microzide] 12.5 mg PO DAILY 06/08/17 03/03/18 Metoprolol [Lopressor] 12.5 mg PO BID 06/08/17 03/03/18 Apixaban [Eliquis] 5 mg PO BID 08/03/17 03/03/18 Pregabalin [Lyrica] 75 mg PO BID 08/03/17 03/03/18 Ascorbate Calcium [Vitamin C] 500 mg PO Q48H 10/06/17 03/03/18 Buspirone HCl [Buspar] 5 mg PO 1-2XD PRN 10/06/17 03/03/18 Cholecalciferol (Vitamin D3) 2,000 unit PO DAILY 10/06/17 03/03/18 [Vitamin D] HYDROcodone/Acet 5/325 mg [Roma 1 tab PO Q6H PRN 10/06/17 03/03/18 5-325 mg] Iron,Carbonyl [Iron Chews] 28 mg PO Q48H 10/06/17 03/03/18 Previous Rx's Medication Instructions Recorded amLODIPine [Norvasc] 5 mg PO DAILY #60 tablet 02/10/17 Ondansetron ODT [Zofran ODT] 4 mg PO Q8HR #12 tab.rapdis 10/06/17 predniSONE [PredniSONE] 20 mg PO DAILY 5 Days #7 tablet 03/03/18 Allergies Allergy/AdvReac Type Severity Reaction Status Date / Time Penicillins [PCN] Allergy Rash Verified 03/03/18 19:09 Hydromorphone [From Dilaudid] AdvReac Gastrointestinal Verified 03/03/18 19:09 Upset All systems ED: reviewed and negative except as stated. Review of Systems: As Per HPI Past Medical History - Past Medical History Attestation: Yes The following information was validated with the patient. 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 Absent: scleral icterus, conjunctival injection - ENT ENT exam: normal exam, mucous membranes dry - Neck Neck exam: Present: normal inspection, full ROM, trachea midline. Absent: tenderness, meningismus, lymphadenopathy - Chest Chest inspection: Present: normal inspection, symmetric chest wall rise - Respiratory Respiratory exam: Present: normal lung sounds bilaterally. Absent: respiratory distress, wheezes, prolonged expiratory phase - Cardiovascular Cardiovascular exam: Present: regular rate, normal rhythm, normal heart sounds. Absent: tachycardia - Abdominal Exam Abdominal exam: Present: soft, Non-Tender, normal bowel sounds. Absent: tenderness, distention, guarding, rebound, rigidity Abdominal tenderness: Absent: suprapubic - Extremities Exam Extremities exam: Present: normal inspection, full ROM, normal capillary refill. Absent: tenderness, pedal edema, calf tenderness - Expanded Lower Extremity Exam Neurovascular/Tendon exam: Present: normal capillary refill. Absent: motor deficit, sensory deficit Gait: not tested/not observed - Back Exam Back exam: Absent: tenderness, CVA tenderness (R), CVA tenderness (L) - Neurological Exam Neurological exam: Present: CN II-XII intact. Absent: motor sensory deficit - Psychiatric Psychiatric exam: Present: anxious, other (Periodically moaning). Absent: agitated - Skin Skin exam: Present: warm, dry, intact, pallor. Absent: cyanosis, diaphoresis, mottled Course Course Narrative: 2320: Care has been discussed with Dr. Nava with plan to observe him at this facility pending her troponin. Shortly after talking to Dr. Nava the troponin has returned at 0.06. I recontacted Dr. Nava and he is comfortable with the patient states this facility providing the troponin is not elevating. Repeat troponin has been written for 12:15 AM. 0100: The patient's troponin is stable at 0.06. As per previous discussion with Dr. Nava the patient is written for inpatient observation with continuation of IV fluids and antibiotics. Vital Signs Temperature 98.4 F 03/10/18 22:02 Pulse Rate 92 03/10/18 22:02 Respiratory Rate 24 03/10/18 22:02 Blood Pressure 114/58 03/10/18 22:02 O2 Sat by Pulse Oximetry 94 03/10/18 22:02 Temperature 98.4 F 03/10/18 22:02 Pulse Rate 86 03/11/18 00:07 Respiratory Rate 20 03/11/18 00:07 Blood Pressure 127/85 03/11/18 00:07 O2 Sat by Pulse Oximetry 98 03/11/18 00:07 Oxygen Delivery Oxygen Delivery Room Air Weakness - Differential Diagnosis Differential Diagnosis: Likely: sepsis/infection, dehydration, medication effect , metabolic - Medical Records Medical records reviewed: Yes I reviewed the patient's medical records. - Lab Data Lab results reviewed: Yes I reviewed the patient's lab results. Result diagrams: 03/10/18 22:31 03/10/18 22:31 Lab Results 03/10/18 03/10/18 03/10/18 Range/Units 22:07 22:31 22:31 WBC 15.3 H (4.3-11.1) K/mcL RBC 4.45 (3.82-4.97) M/mcL Hgb 13.9 (11.5-15.4) g/dL Hct 42.8 (35.3-44.9) % MCV 96.2 (83.0-100.0) fL MCH 31.2 (28.0-33.3) pg MCHC 32.5 (31.6-35.5) g/dL RDW 13.6 (11.5-14.5) % Plt Count 280 (140-400) K/mcL MPV 11.6 (9.4-12.4) fL Immature Gran % 0.5 (0-4) % Seg Neutrophils % 63.6 % Lymphocytes % 23.8 % Monocytes % 10.8 % Eosinophils % 0.9 % Basophils % 0.4 % Neutrophils # 9.7 H (1.6-8.9) K/mcL Lymphocytes # 3.6 (0.6-4.6) K/mcL Monocytes # 1.7 H (0.0-1.3) K/mcL Eosinophils # 0.1 (0.0-0.6) K/mcL Basophils # 0.1 (0.0-0.2) K/mcL Sodium 130 L (136-145) mEq/L Potassium 4.1 (3.5-5.1) mEq/L Chloride 94 L (98-107) mEq/L Carbon Dioxide 25 (23-29) mEq/L BUN 60 H (8-23) mg/dL Creatinine 1.96 H (0.60-1.20) mg/dL Est GFR ( Amer) 29 L (> 60) Est GFR (Non-Af Amer) 24 L (> 60) BUN/Creatinine Ratio 31 H (6-26) Glucose 226 H (70-105) mg/dL Calculated Osmolality 294 (280-300) Lactic Acid (0.5-2.2) mmol/L Calcium 8.4 L (8.6-10.3) mg/dL Total Bilirubin 0.9 (0.3-1.0) mg/dL AST 14 (13-39) Units/L ALT 17 (7-52) Units/L Alkaline Phosphatase 108 H (34-104) Units/L Troponin I 0.06 H* (< 0.04) ng/mL Serum Total Protein 6.4 (6.4-8.9) g/dL Albumin 3.3 L (3.5-5.7) g/dL Globulin 3.1 (2.4-3.5) g/dL Albumin/Globulin Ratio 1.1 (1.1-2.2) Urine Color Yellow (Yellow) Urine Clarity Cloudy A (Clear) Urine pH 5.5 (5.0-8.0) pH Units Ur Specific [place] 1.025 (1.010-1.025) Urine Protein 30 H (Neg-Trace) mg/dL Urine Glucose (UA) Normal (Normal) mg/dL Urine Ketones Trace H (Negative) mg/dL Urine Blood Small H (Negative) Urine Nitrite Positive A (Negative) Urine Bilirubin Negative (Negative) Urine Urobilinogen Normal (Normal) mg/dL Ur Leukocyte Esterase Large H (Negative) Urine Microscopic RBC 5-15 H (0-3) per hpf Urine Microscopic WBC TNTC H (0-3) per hpf Ur Squamous Epith Cells Few (None-Few) per lpf Urine Bacteria Moderate H (None-Few) per hpf Ur Culture Indicated? YES A (NO) 03/10/18 03/11/18 Range/Units 22:31 00:19 WBC (4.3-11.1) K/mcL RBC (3.82-4.97) M/mcL Hgb (11.5-15.4) g/dL Hct (35.3-44.9) % MCV (83.0-100.0) fL MCH (28.0-33.3) pg MCHC (31.6-35.5) g/dL RDW (11.5-14.5) % Plt Count (140-400) K/mcL MPV (9.4-12.4) fL Immature Gran % (0-4) % Seg Neutrophils % % Lymphocytes % % Monocytes % % Eosinophils % % Basophils % % Neutrophils # (1.6-8.9) K/mcL Lymphocytes # (0.6-4.6) K/mcL Monocytes # (0.0-1.3) K/mcL Eosinophils # (0.0-0.6) K/mcL Basophils # (0.0-0.2) K/mcL Sodium (136-145) mEq/L Potassium (3.5-5.1) mEq/L Chloride (98-107) mEq/L Carbon Dioxide (23-29) mEq/L BUN (8-23) mg/dL Creatinine (0.60-1.20) mg/dL Est GFR ( Amer) (> 60) Est GFR (Non-Af Amer) (> 60) BUN/Creatinine Ratio (6-26) Glucose (70-105) mg/dL Calculated Osmolality (280-300) Lactic Acid 1.6 (0.5-2.2) mmol/L Calcium (8.6-10.3) mg/dL Total Bilirubin (0.3-1.0) mg/dL AST (13-39) Units/L ALT (7-52) Units/L Alkaline Phosphatase (34-104) Units/L Troponin I 0.06 H* (< 0.04) ng/mL Serum Total Protein (6.4-8.9) g/dL Albumin (3.5-5.7) g/dL Globulin (2.4-3.5) g/dL Albumin/Globulin Ratio (1.1-2.2) Urine Color (Yellow) Urine Clarity (Clear) Urine pH (5.0-8.0) pH Units Ur Specific [place] (1.010-1.025) Urine Protein (Neg-Trace) mg/dL Urine Glucose (UA) (Normal) mg/dL Urine Ketones (Negative) mg/dL Urine Blood (Negative) Urine Nitrite (Negative) Urine Bilirubin (Negative) Urine Urobilinogen (Normal) mg/dL Ur Leukocyte Esterase (Negative) Urine Microscopic RBC (0-3) per hpf Urine Microscopic WBC (0-3) per hpf Ur Squamous Epith Cells (None-Few) per lpf Urine Bacteria (None-Few) per hpf Ur Culture Indicated? (NO) - Radiology Data Radiology results reviewed: Yes I reviewed the patient's radiology results. Single view chest x-ray is performed. This does not demonstrate evidence for infiltrate, effusion, pneumothorax, foreign body or heart failure. The cardiac silhouette is normal. I do not see abnormality to the osseous structures of the chest. This is on my interpretation. Impressions Chest X-Ray 03/10/18 21:54 IMPRESSION: Hypoventilatory examination. No acute cardiopulmonary abnormality. D/ / Param Delgado / Param Delgado Interpreting Provider: Param Delgado - EKG Data EKG attestation: Yes I reviewed and interpreted this EKG. EKG shows normal: axis, intervals, QRS complexes Rate: normal (93) Rhythm: A.Fib Voltage: c/w LVH Interpretation: no acute changes, nonspecific ST-T wave changes
[2018-03-10] MEDS ORDERED: 0.9 % Sodium Chloride 1,000 ML IVC ONE (21:54)
[2018-03-10] MEDS ORDERED: cefTRIAXone 2,000 MG in 0.9 % Sodium Chloride Mini Bag 100 ML IVPB ONE (21:56)
[2018-03-10 22:07] LABS: Bilirubin,Urine Negative (Negative); Blood,Urine Small (Negative); Clarity,Urine Cloudy (Clear); Color,Urine Yellow (Yellow); Glucose,Urine (UA) Normal (Normal); Ketones,Urine Trace mg/dL (Negative); Leukocyte Esterase,Urine Large (Negative); Nitrite,Urine Positive (Negative); PH,Urine 5.5 pH Units (5.0-8.0); Protein,Urine 30 mg/dL (Neg-Trace); Specific Gravity,Urine 1.025 (1.010-1.025); Urobilinogen,Urine Normal (Normal)
[2018-03-10 22:50] LABS: Basophils # 0.1 K/mcL (0.0-0.2); Basophils % 0.4 %; Eosinophils # 0.1 K/mcL (0.0-0.6); Eosinophils % 0.9 %; Hematocrit 42.8 % (35.3-44.9); Hemoglobin 13.9 g/dL (11.5-15.4); Immature Granulocytes % 0.5 % (0-4); Lymphocytes # 3.6 K/mcL (0.6-4.6); Lymphocytes % 23.8 %; Mean Corpuscular HGB Conc 32.5 g/dL (31.6-35.5); Mean Corpuscular Hemoglobin 31.2 pg (28.0-33.3); Mean Corpuscular Volume 96.2 fL (83.0-100.0); Mean Platelet Volume 11.6 fL (9.4-12.4); Monocytes % 10.8 %; Neutrophils # 9.7 K/mcL (1.6-8.9); Platelet Count 280 K/mcL (140-400); Red Blood Count 4.45 M/mcL (3.82-4.97); Red Cell Distribution Width 13.6 % (11.5-14.5); Segmented Neutrophils % 63.6 %
[2018-03-10 22:51] LABS: Bacteria,Urine Moderate per hpf (None-Few); WBC,Urine TNTC per hpf (0-3)
[2018-03-10 22:53] LABS: Squamous Epithelial Cell,Urine Few per lpf (None-Few)
[2018-03-10] MEDS ORDERED: 0.9 % Sodium Chloride 1,000 ML IVC SCH (23:00)
[2018-03-10 23:04] LABS: Monocytes # 1.7 K/mcL (0.0-1.3)
[2018-03-10 23:06] LABS: Albumin 3.3 g/dL (3.5-5.7); Albumin/Globulin Ratio 1.1 (1.1-2.2); Bilirubin,Total 0.9 mg/dL (0.3-1.0); Calcium 8.4 mg/dL (8.6-10.3); Globulin 3.1 g/dL (2.4-3.5); Potassium 4.1 mEq/L (3.5-5.1); Total Protein 6.4 g/dL (6.4-8.9)
[2018-03-10 23:21] LABS: Troponin I 0.06 ng/mL (< 0.04)
[2018-03-11] MEDS ORDERED: *HR* Dextrose 50 % in Water (Syg) 50 ML SYRINGE IVP PRN (01:42)
[2018-03-11] MEDS ORDERED: Dextrose Gel 15 GM/37.5 ML TUBE PO PRN ×2 (01:42)
[2018-03-11] MEDS ORDERED: D5% in Water 1,000 ML IVC PRN (01:42)
[2018-03-11] MEDS ORDERED: Naloxone 0.4 MG/ML INJ IVP PRN (01:42)
[2018-03-11 06:28] LABS: Calcium 7.9 mg/dL (8.6-10.3); Potassium 3.8 mEq/L (3.5-5.1)
[2018-03-11] MEDS: cefTRIAXone 2,000 MG in 0.9 % Sodium Chloride Mini Bag 100 ML IVPB SCH (09:44)
[2018-03-11] MEDS: 0.9 % Sodium Chloride 1,000 ML IVC SCH ×2 (09:53→13:40)
[2018-03-11] MEDS: Insulin LISPRO 300 UNITS/3 ML VIAL SQ SCH ×3 (09:54→17:46)
--- NOTE | 2018-03-11 12:12 | Internal Med History&Physical ---
Date of Encounter: 03/11/18 Time of Encounter: 11:25 Assessment and Plan (1) Acute on chronic renal insufficiency Current visit: Yes Status: Acute Suspect due to poor oral intake and diuretic use. IV fluids will be given and diuretics held. Labs will be checked in a.m. (2) UTI (urinary tract infection) Current visit: Yes Status: Acute Continue Rocephin and add lactobacillus. Qualifiers: Urinary tract infection type: acute cystitis Hematuria presence: without hematuria Qualified Code(s): N30.00 - Acute cystitis without hematuria (3) History of pulmonary embolus (PE) Current visit: No Status: Chronic Continue Eliquis. (4) Elevated troponin I level Current visit: Yes Status: Acute Likely due to demand ischemia with underlying chronic kidney disease stage III. (5) DM type 2 (diabetes mellitus, type 2) Current visit: No Status: Chronic Continue Levemir/Lantus and do Accu-Cheks with SSI. 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 Pugh is a 87 year old female who came to emergency room complaining of not feeling well the past 3 days. She had nausea without vomiting. There was no significant pain. She felt worsening fatigue so came to emergency room. She was evaluated and found to have acute renal failure with probable urinary tract infection. She was admitted to [facility] floor for ongoing care needs. Past Med Surg Social Fam HX - Past Medical History Medical history: DVT, diabetes, hypertension Additional medical history: Low back pain, vertigo, overactive Bladder Psychiatric history: anxiety - Past Surgical History Surgical History: appendectomy, cataract, cholecystectomy, coronary bypass (CABG ), orthopedic, other Additional surgical history: L. arm surgery - Social History Smoking Status: Never smoker Smokeless Tobacco Status: No Alcohol use: none Drug use: none - Family History Daughter Adopted: No Family Member Ethnicity: Non- Living Status: Still Living Hx Family Cardiac Disorders: Yes Hx Family Respiratory Disorders: No Hx Family Cancer: No Hx Family GI Disorders: No Hx Family Endocrine Disorder: No Internal Medicine - H&P: Meds Aspirin 81 mg PO HS 10/03/15 [History] Insulin ASPART [NovoLOG] 4 - 10 unit SQ TIDWM PRN 10/03/15 [History] Simvastatin [Zocor] 10 mg PO HS 10/03/15 [History] Lisinopril [Zestril] 40 mg PO DAILY 10/02/16 [History] Hydrochlorothiazide [Microzide] 25 mg PO DAILY 06/08/17 [History] Metoprolol [Lopressor] 12.5 mg PO BID 06/08/17 [History] Apixaban [Eliquis] 5 mg PO BID 08/03/17 [History] Colace 100 mg PO DAILY 03/11/18 [History] Cyclobenzaprine [Flexeril] 5 mg PO TID PRN 03/11/18 [History] Gabapentin [Neurontin] 300 mg PO QID 03/11/18 [History] Insulin DETEMIR [Levemir] 14 - 24 unit SQ HS 03/11/18 [History] Meclizine [Antivert] 25 mg PO TID PRN 03/11/18 [History] Oxybutynin [Ditropan] 5 mg PO BID 03/11/18 [History] Tylenol 500 mg PO Q4HR 03/11/18 [History] Vitamin D 2,000 units PO DAILY 03/11/18 [History] 3 Allergy/AdvReac Type Severity Reaction Status Date / Time Penicillins [PCN] Allergy Rash Verified 03/03/18 19:09 Hydromorphone [From Dilaudid] AdvReac Gastrointestinal Verified 03/03/18 19:09 Upset All Systems PM: A 10-system review of systems was performed and is negative for pertinent findings except as documented above in the HPI. Review of systems: Review of systems from her January 2017 [facility] stay were reviewed and revised as below. Gen.: Her weight has been stable at approximately 81 kg since the November 2014 hospitalization Cardiovascular: She has hypertension and known ASHD status post NSTEMI January 2014 and 3 vessel CABG April 2014 with MONZON to LAD, SVG to first OM, and SVG to PDA. Her postop course required thoracentesis on the left. She had I&D of left chest and sternotomy wounds February 2014 with wound VAC required. She has had pulmonary emboli on 2 occasions, most recently in 2008. She is now on Xarelto. She has an IVC filter. She had an echocardiogram done March 2016 which showed normal LVEF at 60%. There was mild diastolic dysfunction reported. She does not have clinical heart failure. Respiratory: She is a lifelong nonsmoker and has no known chronic lung disease. She has had negative workup for SARA.. She has a paralyzed right hemidiaphragm. GI:She has had cholecystectomy but denies disorders of her liver or exocrine pancreas. She had colonoscopy approximately 2011 without significant pathology seen. She has occasional constipation. : No history of hematuria dysuria or kidney stones. She has chronic kidney disease stage III. Her daughter reports she was started on oxybutynin a few weeks ago for OAB. Neurologic: No history of large distribution strokes or seizures Endocrine: She was diagnosed with DM 2 approximately 1985. Hemoglobin A1c was 6.7% on 12/12/2016. She has hyperlipidemia but denies thyroid disease. Hematology/oncology: She denies blood disorders cancers or anemia Psychiatric: She has anxiety but no significant depression or other mental health issues Musk skeletal: She had left proximal humerus fracture September 2016. Initial conservative nonoperative treatment failed and she required left reverse total shoulder replacement a few weeks later. She has DJD and osteoporosis but no known gout. She has had knee injections. - Constitutional Vitals: Temp Pulse Resp BP Pulse Ox 98.6 F 83 18 124/65 94 03/11/18 11:40 03/11/18 11:40 03/11/18 11:40 03/11/18 11:40 03/11/18 11:40 Exam: Gen.: She is a well-developed well-nourished female resting comfortably in bed who appears in no acute distress at present time HEENT: Head is atraumatic and normocephalic. Eyes: EOMI. There is no scleral icterus. Mouth: Mucosa is moist. Neck: Supple and nontender. There is no thyromegaly or adenopathy noted. Heart: Regular without murmurs gallops or ectopics Lungs: No wheezes or crackles are heard. Abdomen: Soft and nontender. No masses or guarding are noted. Extremities: There is no cyanosis edema or clubbing noted. Dorsalis pedis and posttibial pulses are trace to 1+ palpable bilaterally. She has DJD changes or hands. Neurologic: Mental status: She is able to answer questions. She is very hard of hearing. Cranial nerves: Smile is symmetric. Forehead wrinkles bilaterally. Tongue protrudes midline. EOMI. Motor: There is no pronator drift. Cerebellar: Finger to nose is intact bilaterally. Skin: Warm and dry Internal Med - H&P Results - Labs CBC & Chem 7: 03/10/18 22:31 03/11/18 05:45 Labs: BMP 03/11/18 05:45 Sodium 133 L Potassium 3.8 Chloride 99 Carbon Dioxide 24 BUN 58 H Creatinine 1.75 H Glucose 222 H Calcium 7.9 L
[2018-03-11] MEDS: 0.45 % Sodium Chloride w/KCl 20 MEQ/1,000 ML MLS IVC SCH ×2 (12:58→23:00)
[2018-03-11] MEDS: Apixaban 5 MG TABLET PO SCH ×2 (13:01→20:15)
[2018-03-11] MEDS: Gabapentin 300 MG CAPSULE PO SCH ×2 (18:35→20:13)
[2018-03-11] MEDS: Aspirin 81 MG TAB.CHEW PO SCH (20:15)
[2018-03-11] MEDS: Lactobacillus 1 EACH CAP.SPRINK PO SCH (20:16)
[2018-03-12] MEDS ORDERED: *HR* HYDROcodone/Acet 5/325 mg TABLET PO PRN (04:34)
[2018-03-12 05:17] LABS: Basophils # 0.1 K/mcL (0.0-0.2); Basophils % 0.5 %; Eosinophils # 0.4 K/mcL (0.0-0.6); Eosinophils % 3.7 %; Hematocrit 41.5 % (35.3-44.9); Hemoglobin 13.7 g/dL (11.5-15.4); Immature Granulocytes % 0.6 % (0-4); Lymphocytes # 2.6 K/mcL (0.6-4.6); Lymphocytes % 23.6 %; Mean Corpuscular Hemoglobin 31.6 pg (28.0-33.3); Mean Corpuscular Volume 95.6 fL (83.0-100.0); Monocytes # 1.3 K/mcL (0.0-1.3); Monocytes % 12.2 %; Neutrophils # 6.5 K/mcL (1.6-8.9); Platelet Count 257 K/mcL (140-400); Red Blood Count 4.34 M/mcL (3.82-4.97); Red Cell Distribution Width 13.4 % (11.5-14.5); Segmented Neutrophils % 59.4 %
[2018-03-12 05:37] LABS: Calcium 8.6 mg/dL (8.6-10.3); Potassium 4.2 mEq/L (3.5-5.1)
[2018-03-12] MEDS ORDERED: *HR* Morphine 2 MG/ML SYRINGE IVP ONE (07:49)
[2018-03-12] MEDS: Lactobacillus 1 EACH CAP.SPRINK PO SCH ×2 (09:26→21:33)
[2018-03-12] MEDS: Cholecalciferol (D-3) 1,000 UNIT TABLET PO SCH (09:26)
[2018-03-12] MEDS: Gabapentin 300 MG CAPSULE PO SCH ×4 (09:26→21:33)
[2018-03-12] MEDS: Lisinopril 20 MG TABLET PO SCH (09:27)
[2018-03-12] MEDS: Apixaban 5 MG TABLET PO SCH ×2 (09:27→21:33)
[2018-03-12] MEDS: 0.45 % Sodium Chloride w/KCl 20 MEQ/1,000 ML MLS IVC SCH ×2 (09:28→20:15)
[2018-03-12] MEDS: cefTRIAXone 2,000 MG in 0.9 % Sodium Chloride Mini Bag 100 ML IVPB SCH (09:30)
[2018-03-12] MEDS: Insulin LISPRO 300 UNITS/3 ML VIAL SQ SCH ×3 (09:40→18:18)
[2018-03-12] MEDS: Insulin DETEMIR 100 UNIT/ML X5UNITS SQ SCH (09:50)
--- NOTE | 2018-03-12 12:47 | Internal Med Progress Note ---
Date of Encounter: 03/12/18 Time of Encounter: 12:40 - Assessment and plan (1) Acute on chronic renal insufficiency Current Visit: Yes Status: Acute Assessment and plan: March 12. BUN and creatinine improved to 45 and 1.34 respectively. Continue present regimen and recheck labs in a.m. (2) UTI (urinary tract infection) Current Visit: Yes Status: Acute Assessment and plan: March 12. Preliminary culture showing gram-negative rods. Continue empiric Rocephin with lactobacillus. Qualifiers: Urinary tract infection type: acute cystitis Hematuria presence: without hematuria Qualified Code(s): N30.00 - Acute cystitis without hematuria (3) History of pulmonary embolus (PE) Current Visit: No Status: Chronic Assessment and plan: March 12. Continue Eliquis. (4) Elevated troponin I level Current Visit: Yes Status: Acute Assessment and plan: March 12. Suspect due to demand ischemia with chronic kidney disease stage III. (5) DM type 2 (diabetes mellitus, type 2) Current Visit: No Status: Chronic Assessment and plan: March 12. Continue Levemir/Lantus and Accu-Cheks with SSI. 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 She had lower abdominal pain complaints earlier. KUB was unremarkable. Bladder scan showed varying amounts of urine on repeated scan so catheter was inserted. More than 1000 mL's urine was obtained and Smith was left. She has no complaints at present time and states she feels better. - Constitutional Vitals: Temp Pulse Resp BP Pulse Ox 98.1 F 70 18 134/71 94 03/12/18 02:42 03/12/18 02:42 03/12/18 02:42 03/12/18 02:42 03/12/18 09:58 Exam: She is resting comfortably in bed and appears in no acute distress. Her abdomen was soft and nontender. Heart was regular without murmurs gallops or ectopics. Extremities show no edema. I reviewed her medications and lab results. Internal Medicine: Result - Labs CBC & Chem 7: 03/12/18 04:50 03/12/18 04:50 Labs: Short CBC 03/12/18 Range/Units 04:50 WBC 10.8 (4.3-11.1) K/mcL Hgb 13.7 (11.5-15.4) g/dL Hct 41.5 (35.3-44.9) % Plt Count 257 (140-400) K/mcL Neutrophils # 6.5 (1.6-8.9) K/mcL BMP 03/12/18 04:50 Sodium 135 L Potassium 4.2 Chloride 101 Carbon Dioxide 25 BUN 45 H Creatinine 1.34 H Glucose 200 H Calcium 8.6 - Impressions Impressions KUB X-Ray 03/12/18 07:50 IMPRESSION: 1. Normal bowel gas pattern without evidence of obstruction. D/ / Ebenezer Celestin MD / Ebenezer Celestin MD Interpreting Provider: Ebenezer Celestin MD Consult Discharge Plan - Plan Referrals: Cody Geronimo MD [Primary Care Provider] - 1 week
[2018-03-12] MEDS: Aspirin 81 MG TAB.CHEW PO SCH (21:33)
[2018-03-13] MEDS: 0.45 % Sodium Chloride w/KCl 20 MEQ/1,000 ML MLS IVC SCH ×2 (05:27→17:10)
[2018-03-13 06:50] LABS: Basophils # 0.1 K/mcL (0.0-0.2); Basophils % 0.6 %; Eosinophils # 0.6 K/mcL (0.0-0.6); Eosinophils % 5.2 %; Hemoglobin 11.6 g/dL (11.5-15.4); Immature Granulocytes % 0.6 % (0-4); Lymphocytes % 26.5 %; Mean Corpuscular HGB Conc 32.2 g/dL (31.6-35.5); Mean Corpuscular Hemoglobin 31.3 pg (28.0-33.3); Mean Platelet Volume 12.1 fL (9.4-12.4); Monocytes # 1.4 K/mcL (0.0-1.3); Monocytes % 12.3 %; Neutrophils # 6.1 K/mcL (1.6-8.9); Platelet Count 240 K/mcL (140-400); Red Blood Count 3.71 M/mcL (3.82-4.97); Red Cell Distribution Width 13.6 % (11.5-14.5); Segmented Neutrophils % 54.8 %
[2018-03-13 07:12] LABS: Calcium 8.2 mg/dL (8.6-10.3); Potassium 4.5 mEq/L (3.5-5.1)
[2018-03-13] MEDS: cefTRIAXone 2,000 MG in 0.9 % Sodium Chloride Mini Bag 100 ML IVPB SCH (08:42)
[2018-03-13] MEDS: Insulin LISPRO 300 UNITS/3 ML VIAL SQ SCH ×3 (08:45→17:10)
[2018-03-13] MEDS: Apixaban 5 MG TABLET PO SCH ×2 (08:46→20:41)
[2018-03-13] MEDS: Cholecalciferol (D-3) 1,000 UNIT TABLET PO SCH (08:46)
[2018-03-13] MEDS: Gabapentin 300 MG CAPSULE PO SCH ×4 (08:46→20:41)
[2018-03-13] MEDS: Lisinopril 20 MG TABLET PO SCH (08:46)
[2018-03-13] MEDS: Lactobacillus 1 EACH CAP.SPRINK PO SCH ×2 (08:46→20:41)
[2018-03-13 09:03] LABS: Estimated Average Glucose 197 mg/dl; Hemoglobin A1C 8.5 %
[2018-03-13] MEDS: Insulin DETEMIR 100 UNIT/ML X5UNITS SQ SCH (09:35)
--- NOTE | 2018-03-13 17:37 | Electrocardiograph Report ---
[address] [place] [id number] Test Date: 2018-03-10 Pat Name: Iman Pugh Department: [id number] Room: [facility] Gender: F Chef: [id number] : 1930 Requested By: Shad Young Order Number: [id number] Reading MD: Arnold Whitmore Measurements Intervals [place] Rate: 93 P: AR: 0 QRS: -21 QRSD: 82 T: 60 QT: 355 QTc: 406 Interpretive Statements ATRIAL FIBRILLATION VOLTAGE CRITERIA FOR LVH POSSIBLE ANTERIOR MYOCARDIAL INFARCTION, PROBABLY OLD Electronically Signed On 03-13-2018 17:35:47 EDT by Arnold Whitmore
--- NOTE | 2018-03-13 19:03 | Internal Med Progress Note ---
Date of Encounter: 03/13/18 Time of Encounter: 18:55 - Assessment and plan (1) Acute on chronic renal insufficiency Current Visit: Yes Status: Acute Assessment and plan: March 12. BUN and creatinine improved to 45 and 1.34 respectively. Continue present regimen and recheck labs in a.m. March 13. Resolving with BUN and creatinine now 31 and 1.19 respectively with estimated GFR 43. Continue present treatment. (2) UTI (urinary tract infection) Current Visit: Yes Status: Acute Assessment and plan: March 12. Preliminary culture showing gram-negative rods. Continue empiric Rocephin with lactobacillus. March 13. Urine culture shows pansensitive Escherichia coli. Discontinue Rocephin and begin oral Keflex. Continue lactobacillus. Qualifiers: Urinary tract infection type: acute cystitis Hematuria presence: without hematuria Qualified Code(s): N30.00 - Acute cystitis without hematuria (3) History of pulmonary embolus (PE) Current Visit: No Status: Chronic Assessment and plan: March 12. Continue Eliquis. (4) Elevated troponin I level Current Visit: Yes Status: Acute Assessment and plan: March 12. Suspect due to demand ischemia with chronic kidney disease stage III. (5) DM type 2 (diabetes mellitus, type 2) Current Visit: No Status: Chronic Assessment and plan: March 12. Continue Levemir/Lantus and Accu-Cheks with SSI. 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 She had lower abdominal pain complaints earlier. KUB was unremarkable. Bladder scan showed varying amounts of urine on repeated scan so catheter was inserted. More than 1000 mL's urine was obtained and Smith was left. She has no complaints at present time and states she feels better. March 13. She has no new complaints and feels better. - Constitutional Vitals: Temp Pulse Resp BP Pulse Ox 97.4 F L 82 18 179/78 98 03/13/18 18:43 03/13/18 18:43 10 18:43 03/13/18 18:43 03/13/18 18:43 Exam: She is resting comfortably in bed and appears in no acute distress. Her affect is bright and cheerful. She is wearing ROBERTO hose. She has no leg edema. Heart is regular without murmurs gallops or ectopics. Lungs are clear anteriorly. Smith catheter has been removed. I reviewed her medications and lab results. Internal Medicine: Result - Labs CBC & Chem 7: 03/13/18 06:00 03/13/18 06:00 Labs: Short CBC 03/13/18 Range/Units 06:00 WBC 11.2 H (4.3-11.1) K/mcL Hgb 11.6 D (11.5-15.4) g/dL Hct 36.0 (35.3-44.9) % Plt Count 240 (140-400) K/mcL Neutrophils # 6.1 (1.6-8.9) K/mcL BMP 03/13/18 06:00 Sodium 134 L Potassium 4.5 Chloride 104 Carbon Dioxide 25 BUN 31 H Creatinine 1.19 Glucose 142 H Calcium 8.2 L Consult Discharge Plan - Plan Referrals: Cody Geronimo MD [Primary Care Provider] - 1 week
[2018-03-13] MEDS: Aspirin 81 MG TAB.CHEW PO SCH (20:41)
[2018-03-13] MEDS: cephALEXin 500 MG CAPSULE PO SCH (20:45)
[2018-03-14] MEDS: 0.45 % Sodium Chloride w/KCl 20 MEQ/1,000 ML MLS IVC SCH ×2 (03:09→13:04)
[2018-03-14] MEDS: Insulin LISPRO 300 UNITS/3 ML VIAL SQ SCH ×3 (08:05→16:57)
[2018-03-14] MEDS: Lactobacillus 1 EACH CAP.SPRINK PO SCH (08:56)
[2018-03-14] MEDS: Lisinopril 20 MG TABLET PO SCH (08:57)
[2018-03-14] MEDS: Insulin DETEMIR 100 UNIT/ML X5UNITS SQ SCH (08:57)
[2018-03-14] MEDS: Gabapentin 300 MG CAPSULE PO SCH ×3 (08:57→16:57)
[2018-03-14] MEDS: Apixaban 5 MG TABLET PO SCH (08:57)
[2018-03-14] MEDS: Cholecalciferol (D-3) 1,000 UNIT TABLET PO SCH (08:57)
[2018-03-14] MEDS: cephALEXin 500 MG CAPSULE PO SCH (09:05)
--- NOTE | 2018-03-14 17:22 | Discharge Summary ---
Date of Encounter: 03/14/18 Time of Encounter: 17:05 - Discharge Diagnosis (1) Acute on chronic renal insufficiency Priority: Primary Status: Acute (2) UTI (urinary tract infection) Priority: Secondary Status: Acute Qualifiers: Urinary tract infection type: acute cystitis Hematuria presence: without hematuria Qualified Code(s): N30.00 - Acute cystitis without hematuria (3) Urinary retention Priority: Secondary Status: Acute (4) History of pulmonary embolus (PE) Priority: Secondary Status: Chronic (5) Elevated troponin I level Priority: Secondary Status: Acute (6) DM type 2 (diabetes mellitus, type 2) Priority: Secondary Status: Chronic Qualifiers: Diabetes mellitus fpc insulin use: with fpc use Diabetes mellitus complication status: without complication Qualified Code(s): E11.9 - Type 2 diabetes mellitus without complications; Z79.4 - [facility] (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 of insulin Hospital course: Ms. Pugh is a 87 year old female who came to emergency room complaining of not feeling well the past 3 days. She had nausea without vomiting. There was no significant pain. She felt worsening fatigue so came to emergency room. She was evaluated and found to have acute renal failure with probable urinary tract infection. She was admitted to [facility] for ongoing care needs. Initial orders were written by the emergency room physician. I saw her on March 11 and performed a history and physical. She was found to have urinary retention with more than 1000 mL in her bladder. Oxybutynin was discontinued and Smith catheter was inserted. After approximately 24 hours a discontinuation trial was attempted of the Smith catheter but urinary retention recurred. Smith was reinserted and will remain. She was ordered Urecholine at discharge to swing bed. Urine culture returned showing Escherichia coli that was pansensitive to tested antibiotics. She received Rocephin empirically beginning emergency room. She will continue Keflex and probiotic for 2 additional days. Physical therapy and occupational therapy evaluations with ongoing intervention were done. It was felt patient would benefit from ongoing therapy and medical services in swing bed. Approval was received the afternoon of March 14 for discharge to swing bed. - Time Spent with Patient Total time spent providing and/or coordinating discharge services: - Discharge Medications Home Medications: Aspirin 81 mg PO HS 10/03/15 [History] Insulin ASPART [NovoLOG] 4 - 10 unit SQ TIDWM PRN 04/30/16 [History] Simvastatin [Zocor] 10 mg PO HS 10/03/15 [History] Lisinopril [Zestril] 40 mg PO DAILY 10/02/16 [History] Metoprolol [Lopressor] 12.5 mg PO BID 06/08/17 [History] Apixaban [Eliquis] 5 mg PO BID 08/03/17 [History] Colace 100 mg PO DAILY 03/11/18 [History] Cyclobenzaprine [Flexeril] 5 mg PO TID PRN 03/11/18 [History] Gabapentin [Neurontin] 300 mg PO QID 03/11/18 [History] Meclizine [Antivert] 25 mg PO TID PRN 03/11/18 [History] Tylenol 500 mg PO Q4HR 03/11/18 [History] Vitamin D 2,000 units PO DAILY 03/11/18 [History] Bethanechol [Urecholine] 12.5 mg PO TID tablet 03/14/18 [Rx] Insulin DETEMIR [Levemir] 18 unit SQ HS #0 03/14/18 [Rx] Lactobacillus [Culturelle] 1 each PO BID 2 Days cap.sprink 03/14/18 [Rx] cephALEXin [Keflex] 500 mg PO BID 2 Days capsule 03/14/18 [Rx] Allergies/Adverse Reactions: 3 Allergy/AdvReac Type Severity Reaction Status Date / Time Penicillins [PCN] Allergy Rash Verified 03/03/18 19:09 Hydromorphone [From Dilaudid] AdvReac Gastrointestinal Verified 03/03/18 19:09 Upset Date of admission: 03/12/18 14:39 Primary care physician: Cody Geronimo MD - Constitutional Vitals: Temp Pulse Resp BP Pulse Ox 97.7 F 57 14 161/65 97 03/14/18 11:11 03/14/18 11:11 03/14/18 11:11 03/14/18 11:11 03/14/18 11:11 - Patient Status Disposition: Transfer Hospital Swing Bed Condition: Fair - Discharge Instructions - Diet and Activity Activity: as per physical therapy Diet: diabetic diet
[2018-03-14 18:32] VITALS: BP 164/60
== END 2018-03-14 19:26 | disposition other institution (70) | DRG 683 ==
LOC: EMEROOPIK 21:43 → INPPIK 21:43
PROVIDERS: ADMIT Internal Medicine; ATTEND Internal Medicine

== ENCOUNTER 2018-03-14 18:02 | Inpatient (IN) ==
[2018-03-14] MEDS ORDERED: NON-FORMULARY MEDICATION 1 EACH EACH (Insulin Aspart 0 UNIT) SQ PRN (19:21)
[2018-03-14] MEDS ORDERED: *HR* Dextrose 50 % in Water (Syg) 50 ML SYRINGE IVP PRN (19:51)
[2018-03-14] MEDS ORDERED: D5% in Water 1,000 ML IVC PRN (19:51)
[2018-03-14] MEDS ORDERED: Dextrose Gel 15 GM/37.5 ML TUBE PO PRN ×2 (19:51)
[2018-03-14] MEDS ORDERED: Insulin DETEMIR 100 UNIT/ML per UNIT SQ ONE (21:00)
[2018-03-14] MEDS: cephALEXin 500 MG CAPSULE PO SCH (21:37)
[2018-03-14] MEDS: Lactobacillus 1 EACH CAP.SPRINK PO SCH (21:37)
[2018-03-14] MEDS: Gabapentin 300 MG CAPSULE PO SCH (21:37)
[2018-03-14] MEDS: Aspirin 81 MG TAB.CHEW PO SCH (21:37)
[2018-03-14] MEDS: Apixaban 5 MG TABLET PO SCH (21:37)
[2018-03-14] MEDS: Insulin LISPRO 300 UNITS/3 ML VIAL SQ SCH (21:44)
[2018-03-15 06:51] LABS: Basophils # 0.1 K/mcL (0.0-0.2); Basophils % 0.5 %; Eosinophils # 0.5 K/mcL (0.0-0.6); Eosinophils % 5.3 %; Hematocrit 36.8 % (35.3-44.9); Immature Granulocytes % 0.4 % (0-4); Lymphocytes # 1.8 K/mcL (0.6-4.6); Lymphocytes % 19.4 %; Mean Corpuscular HGB Conc 32.6 g/dL (31.6-35.5); Mean Corpuscular Hemoglobin 31.8 pg (28.0-33.3); Mean Corpuscular Volume 97.6 fL (83.0-100.0); Mean Platelet Volume 11.1 fL (9.4-12.4); Monocytes # 0.8 K/mcL (0.0-1.3); Monocytes % 8.6 %; Platelet Count 258 K/mcL (140-400); Red Blood Count 3.77 M/mcL (3.82-4.97); Red Cell Distribution Width 13.6 % (11.5-14.5); Segmented Neutrophils % 65.8 %
[2018-03-15 07:10] LABS: BUN/Creatinine Ratio 23 (6-26); Blood Urea Nitrogen 23 mg/dL (8-23); Calcium 8.7 mg/dL (8.6-10.3); Carbon Dioxide 26 mEq/L (23-29); Chloride 107 mEq/L (98-107); Glucose 165 mg/dL (70-105); Osmolality,Calculated 295 (280-300); Potassium 4.5 mEq/L (3.5-5.1); Sodium 139 mEq/L (136-145); eGFR For Non-African Americans 54 (> 60)
[2018-03-15] MEDS: Insulin LISPRO 300 UNITS/3 ML VIAL SQ SCH ×4 (08:36→21:32)
[2018-03-15] MEDS: Apixaban 5 MG TABLET PO SCH ×2 (08:44→21:29)
[2018-03-15] MEDS: Cholecalciferol (D-3) 1,000 UNIT TABLET PO SCH (08:44)
[2018-03-15] MEDS: Lisinopril 20 MG TABLET PO SCH (08:44)
[2018-03-15] MEDS: cephALEXin 500 MG CAPSULE PO SCH ×2 (08:44→21:35)
[2018-03-15] MEDS: Lactobacillus 1 EACH CAP.SPRINK PO SCH ×2 (08:44→21:30)
[2018-03-15] MEDS: Gabapentin 300 MG CAPSULE PO SCH ×4 (08:44→21:29)
[2018-03-15] MEDS ORDERED: Insulin DETEMIR 100 UNIT/ML X5UNITS SQ SCH ×2 (09:00→21:00)
--- NOTE | 2018-03-15 11:24 | Internal Med Progress Note ---
Date of Encounter: 03/15/18 Time of Encounter: 11:15 - Assessment and plan (1) Weakness Current Visit: No Status: Acute Assessment and plan: March 15. Continue therapy intervention. (2) Hypertension Current Visit: Yes Status: Chronic Assessment and plan: March 15. Inadequately controlled. Continue lisinopril and Lopressor and add Cardura Qualifiers: Hypertension type: essential hypertension Qualified Code(s): I10 - Essential (primary) hypertension (3) DM type 2 (diabetes mellitus, type 2) Current Visit: No Status: Chronic Assessment and plan: March 15. Continue Levemir and Accu-Cheks with SSI. 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 Continue Eliquis (5) UTI (urinary tract infection) Current Visit: No Status: Ruled-out Assessment and plan: March 15. Discontinue Keflex and lactobacillus after today's doses. Qualifiers: Urinary tract infection type: site unspecified Hematuria presence: with hematuria Qualified Code(s): N39.0 - Urinary tract infection, site not specified; R31.9 - Hematuria, unspecified (6) Urinary retention Current Visit: No Status: Acute Assessment and plan: March 15. Continue Smith catheter and Urecholine. - Subjective Interval history: March 15. She was hospitalized in acute-care March 10- after presenting with acute renal failure and UTI. She had urinary retention with more than 1000 mL in her bladder. Oxybutynin was discontinued and Smith catheter inserted. She failed a voiding trial after Smith removal and the catheter was reinserted. She was placed on Urecholine. Azotemia improved significantly following catheter insertion. Urine culture showed Escherichia coli and she received antibiotics with continuation for 2 additional days ordered in swing bed. Physical therapy and occupational therapy evaluations with ongoing intervention were done. She has no new complaints today. - Constitutional Vitals: Temp Pulse Resp BP Pulse Ox 97.7 F 63 18 196/75 99 03/15/18 06:55 03/15/18 06:55 03/15/18 06:55 03/15/18 07:26 03/15/18 06:55 Exam: She is resting comfortably in bed and appears in no acute distress. Her affect is bright and cheerful. She has no extremity edema. I reviewed her medications and lab results. Internal Medicine: Result - Labs CBC & Chem 7: 03/15/18 06:43 03/15/18 06:43 Labs: Short CBC 03/15/18 Range/Units 06:43 WBC 9.2 (4.3-11.1) K/mcL Hgb 12.0 (11.5-15.4) g/dL Hct 36.8 (35.3-44.9) % Plt Count 258 (140-400) K/mcL Neutrophils # 6.0 (1.6-8.9) K/mcL BMP 03/15/18 06:43 Sodium 139 Potassium 4.5 Chloride 107 Carbon Dioxide 26 BUN 23 Creatinine 0.98 Glucose 165 H Calcium 8.7 - VTE Documentation of Mechanical Device: Intermittent pneumatic compression device Consult Discharge Plan - Plan Referrals: Cody Geronimo MD [Primary Care Provider] - 1 week
[2018-03-15] MEDS: Insulin DETEMIR 100 UNIT/ML X5UNITS SQ SCH (12:19)
[2018-03-15] MEDS ORDERED: amLODIPine 5 MG TABLET PO ONE (12:51)
[2018-03-15] MEDS: *HR* HYDROcodone/Acet 5/325 mg TABLET PO PRN (15:02)
[2018-03-15] MEDS: Aspirin 81 MG TAB.CHEW PO SCH (21:30)
[2018-03-16] MEDS: Insulin LISPRO 300 UNITS/3 ML VIAL SQ SCH ×4 (08:03→21:59)
[2018-03-16] MEDS: Lisinopril 20 MG TABLET PO SCH (08:58)
[2018-03-16] MEDS: Gabapentin 300 MG CAPSULE PO SCH ×4 (08:58→21:58)
[2018-03-16] MEDS: Cholecalciferol (D-3) 1,000 UNIT TABLET PO SCH (08:59)
[2018-03-16] MEDS: Apixaban 5 MG TABLET PO SCH ×2 (08:59→21:58)
[2018-03-16] MEDS: Lactobacillus 1 EACH CAP.SPRINK PO SCH (08:59)
[2018-03-16] MEDS: cephALEXin 500 MG CAPSULE PO SCH (09:01)
[2018-03-16] MEDS: Insulin DETEMIR 100 UNIT/ML X5UNITS SQ SCH (09:02)
[2018-03-16] MEDS: Aspirin 81 MG TAB.CHEW PO SCH (21:58)
[2018-03-17] MEDS: Insulin LISPRO 300 UNITS/3 ML VIAL SQ SCH ×4 (08:46→19:57)
[2018-03-17] MEDS: Gabapentin 300 MG CAPSULE PO SCH ×4 (08:48→19:52)
[2018-03-17] MEDS: Cholecalciferol (D-3) 1,000 UNIT TABLET PO SCH (08:48)
[2018-03-17] MEDS: Apixaban 5 MG TABLET PO SCH ×2 (08:48→19:52)
[2018-03-17] MEDS: Lisinopril 20 MG TABLET PO SCH (08:48)
[2018-03-17] MEDS: Insulin DETEMIR 100 UNIT/ML X5UNITS SQ SCH (08:54)
[2018-03-17] MEDS: *HR* HYDROcodone/Acet 5/325 mg TABLET PO PRN (19:50)
[2018-03-17] MEDS: Aspirin 81 MG TAB.CHEW PO SCH (19:52)
[2018-03-18] MEDS: Apixaban 5 MG TABLET PO SCH ×2 (09:02→20:05)
[2018-03-18] MEDS: Lisinopril 20 MG TABLET PO SCH (09:03)
[2018-03-18] MEDS: Gabapentin 300 MG CAPSULE PO SCH ×4 (09:03→20:05)
[2018-03-18] MEDS: Cholecalciferol (D-3) 1,000 UNIT TABLET PO SCH (09:03)
[2018-03-18] MEDS: Insulin LISPRO 300 UNITS/3 ML VIAL SQ SCH ×4 (09:08→20:05)
[2018-03-18] MEDS: Insulin DETEMIR 100 UNIT/ML X5UNITS SQ SCH (09:09)
--- NOTE | 2018-03-18 12:58 | Internal Med Progress Note ---
Date of Encounter: 03/18/18 Time of Encounter: 12:50 - Assessment and plan (1) Weakness Current Visit: No Status: Acute Assessment and plan: March 15. Continue therapy intervention. (2) Hypertension Current Visit: Yes Status: Chronic Assessment and plan: March 15. Inadequately controlled. Continue lisinopril and Lopressor and add Cardura March 18. Increase Cardura. Continue lisinopril and Lopressor. Qualifiers: Hypertension type: essential hypertension Qualified Code(s): I10 - Essential (primary) hypertension (3) DM type 2 (diabetes mellitus, type 2) Current Visit: No Status: Chronic Assessment and plan: March 15. Continue Levemir and Accu-Cheks with SSI. March 18. Hemoglobin A1c was 8.5% on 03/13/2018. Blood sugars show fluctuation. Continue present dose Levemir and Accu-Cheks with SSI. Qualifiers: Diabetes mellitus mcfp insulin use: with mcfp use Diabetes mellitus complication status: without complication Qualified Code(s): E11.9 - Type 2 diabetes mellitus without complications; Z79.4 - [facility]CI (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 of insulin (4) History of pulmonary embolus (PE) Current Visit: No Status: Chronic Assessment and plan: March 15. Continue Eliquis (5) Urinary retention Current Visit: No Status: Acute Assessment and plan: March 15. Continue Smith catheter and Urecholine. March 18. Trial of discontinuation of Smith. Continue Urecholine for now. (6) Constipation Current Visit: No Status: Acute Assessment and plan: March 18. Order MiraLAX and continue Colace. Qualifiers: Constipation type: unspecified constipation type Qualified Code(s): K59.00 - Constipation, unspecified - Subjective Interval history: March 15. She was hospitalized in acute-care March 10 after presenting with acute renal failure and UTI. She had urinary retention with more than 1000 mL in her bladder. Oxybutynin was discontinued and Smith catheter inserted. She failed a voiding trial after Smith removal and the catheter was reinserted. She was placed on Urecholine. Azotemia improved significantly following catheter insertion. Urine culture showed Escherichia coli and she received antibiotics with continuation for 2 additional days ordered in swing bed. Physical therapy and occupational therapy evaluations with ongoing intervention were done. She has no new complaints today. March 18. She has no new complaints. - Constitutional Vitals: Temp Pulse Resp BP Pulse Ox 97.9 F 68 16 180/75 99 03/18/18 06:25 03/18/18 06:25 03/18/18 06:25 03/18/18 06:25 03/18/18 06:25 Exam: She is sitting in a chair at bedside resting comfortably. Her affect is bright and cheerful. I reviewed her medications and lab results. Internal Medicine: Result - Labs CBC & Chem 7: 03/15/18 06:43 03/15/18 06:43 - VTE Documentation of Mechanical Device: Intermittent pneumatic compression device Consult Discharge Plan - Plan Referrals: Cody Geronimo MD [Primary Care Provider] - 1 week
[2018-03-18] MEDS: Aspirin 81 MG TAB.CHEW PO SCH (20:04)
[2018-03-19 07:09] LABS: Basophils % 0.6 %; Eosinophils # 0.5 K/mcL (0.0-0.6); Hematocrit 34.6 % (35.3-44.9); Immature Granulocytes % 0.3 % (0-4); Lymphocytes # 2.3 K/mcL (0.6-4.6); Lymphocytes % 32.2 %; Mean Corpuscular HGB Conc 31.8 g/dL (31.6-35.5); Mean Corpuscular Hemoglobin 31.1 pg (28.0-33.3); Mean Corpuscular Volume 97.7 fL (83.0-100.0); Mean Platelet Volume 11.1 fL (9.4-12.4); Monocytes # 0.6 K/mcL (0.0-1.3); Monocytes % 8.9 %; Neutrophils # 3.6 K/mcL (1.6-8.9); Platelet Count 254 K/mcL (140-400); Red Blood Count 3.54 M/mcL (3.82-4.97); Red Cell Distribution Width 13.8 % (11.5-14.5)
[2018-03-19 07:51] LABS: BUN/Creatinine Ratio 25 (6-26); Blood Urea Nitrogen 26 mg/dL (8-23); Calcium 8.8 mg/dL (8.6-10.3); Carbon Dioxide 27 mEq/L (23-29); Chloride 107 mEq/L (98-107); Glucose 166 mg/dL (70-105); Osmolality,Calculated 297 (280-300); Potassium 4.4 mEq/L (3.5-5.1); Sodium 139 mEq/L (136-145); eGFR For Non-African Americans 51 (> 60)
[2018-03-19] MEDS: Cholecalciferol (D-3) 1,000 UNIT TABLET PO SCH (08:12)
[2018-03-19] MEDS: Gabapentin 300 MG CAPSULE PO SCH ×4 (08:12→20:51)
[2018-03-19] MEDS: *HR* HYDROcodone/Acet 5/325 mg TABLET PO PRN (08:12)
[2018-03-19] MEDS: Apixaban 5 MG TABLET PO SCH ×2 (08:13→20:52)
[2018-03-19] MEDS: Insulin LISPRO 300 UNITS/3 ML VIAL SQ SCH ×5 (08:13→22:58)
[2018-03-19] MEDS: Lisinopril 20 MG TABLET PO SCH (08:13)
[2018-03-19] MEDS: Insulin DETEMIR 100 UNIT/ML X5UNITS SQ SCH (08:21)
[2018-03-19] MEDS ORDERED: Ondansetron ODT 4 MG TAB.RAPDIS SL PRN (10:26)
[2018-03-19] MEDS: Aspirin 81 MG TAB.CHEW PO SCH (20:51)
[2018-03-20] MEDS: Lisinopril 20 MG TABLET PO SCH (08:10)
[2018-03-20] MEDS: Gabapentin 300 MG CAPSULE PO SCH ×4 (08:10→20:37)
[2018-03-20] MEDS: Cholecalciferol (D-3) 1,000 UNIT TABLET PO SCH (08:10)
[2018-03-20] MEDS: Apixaban 5 MG TABLET PO SCH ×2 (08:10→20:38)
[2018-03-20] MEDS: Insulin LISPRO 300 UNITS/3 ML VIAL SQ SCH ×4 (08:12→20:35)
[2018-03-20] MEDS: Insulin DETEMIR 100 UNIT/ML X5UNITS SQ SCH (08:12)
--- NOTE | 2018-03-20 18:31 | Internal Med Progress Note ---
Date of Encounter: 03/20/18 Time of Encounter: 18:25 - Assessment and plan (1) Weakness Current Visit: No Status: Acute Assessment and plan: March 15. Continue therapy intervention. (2) Hypertension Current Visit: Yes Status: Chronic Assessment and plan: March 15. Inadequately controlled. Continue lisinopril and Lopressor and add Cardura March 18. Increase Cardura. Continue lisinopril and Lopressor. March 20. Blood pressure inadequately controlled. Increase Cardura. Continue lisinopril and Lopressor. Qualifiers: Hypertension type: essential hypertension Qualified Code(s): I10 - Essential (primary) hypertension (3) DM type 2 (diabetes mellitus, type 2) Current Visit: No Status: Chronic Assessment and plan: March 15. Continue Levemir and Accu-Cheks with SSI. March 18. Hemoglobin A1c was 8.5% on 03/13/2018. Blood sugars show fluctuation. Continue present dose Levemir and Accu-Cheks with SSI. 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 Continue Eliquis (5) Urinary retention Current Visit: No Status: Acute Assessment and plan: March 15. Continue Smith catheter and Urecholine. March 18. Trial of discontinuation of Smith. Continue Urecholine for now. (6) Constipation Current Visit: No Status: Acute Assessment and plan: March 18. Order MiraLAX and continue Colace. March 20. Continue MiraLAX and Colace. Add scheduled MOM. Qualifiers: Constipation type: unspecified constipation type Qualified Code(s): K59.00 - Constipation, unspecified (7) Atrial fibrillation and flutter Current Visit: Yes Status: Acute Assessment and plan: March 20. Continue Eliquis. - Subjective Interval history: March 15. She was hospitalized in acute-care March 10- after presenting with acute renal failure and UTI. She had urinary retention with more than 1000 mL in her bladder. Oxybutynin was discontinued and Smith catheter inserted. She failed a voiding trial after Smith removal and the catheter was reinserted. She was placed on Urecholine. Azotemia improved significantly following catheter insertion. Urine culture showed Escherichia coli and she received antibiotics with continuation for 2 additional days ordered in swing bed. Physical therapy and occupational therapy evaluations with ongoing intervention were done. She has no new complaints today. March 18. She has no new complaints. March 20. She has no new complaints except constipation. - Constitutional Vitals: Temp Pulse Resp BP Pulse Ox 98.3 F 62 14 162/64 96 03/20/18 06:51 03/20/18 06:51 03/20/18 06:51 03/20/18 06:51 03/20/18 06:51 Exam: She is resting comfortably in bed and appears in no acute distress. Her affect is bright and cheerful. Heart is irregularly irregular. Lungs are clear anteriorly. Extremity show no edema. I reviewed her medications and lab results. Internal Medicine: Result - Labs CBC & Chem 7: 03/19/18 06:30 03/19/18 06:30 - VTE Documentation of Mechanical Device: Graduated compression elastic hosiery Consult Discharge Plan - Plan Referrals: Cody Geronimo MD [Primary Care Provider] - 1 week
[2018-03-20] MEDS: MOM Conc 10 ML UD.LIQ PO SCH (18:43)
[2018-03-20] MEDS: Aspirin 81 MG TAB.CHEW PO SCH (20:38)
[2018-03-21] MEDS: Insulin LISPRO 300 UNITS/3 ML VIAL SQ SCH ×4 (07:32→20:26)
[2018-03-21] MEDS: Apixaban 5 MG TABLET PO SCH ×2 (08:38→20:22)
[2018-03-21] MEDS: Lisinopril 20 MG TABLET PO SCH (08:38)
[2018-03-21] MEDS: Gabapentin 300 MG CAPSULE PO SCH ×4 (08:39→20:21)
[2018-03-21] MEDS: Cholecalciferol (D-3) 1,000 UNIT TABLET PO SCH (08:39)
[2018-03-21] MEDS: Insulin DETEMIR 100 UNIT/ML X5UNITS SQ SCH (08:43)
[2018-03-21] MEDS ORDERED: MOM Conc 10 ML UD.LIQ PO ONE (12:20)
[2018-03-21] MEDS: Aspirin 81 MG TAB.CHEW PO SCH (20:23)
[2018-03-21] MEDS: amLODIPine 5 MG TABLET PO SCH (20:23)
[2018-03-22] MEDS ORDERED: amLODIPine 5 MG TABLET PO ONE (08:31)
[2018-03-22] MEDS ORDERED: Apixaban 5 MG TABLET PO ONE (08:31)
[2018-03-22] MEDS ORDERED: Lisinopril 20 MG TABLET PO ONE (08:31)
[2018-03-22] MEDS ORDERED: Gabapentin 300 MG CAPSULE PO ONE (08:31)
[2018-03-22] MEDS ORDERED: Cholecalciferol (D-3) 1,000 UNIT TABLET PO ONE (08:31)
[2018-03-22] MEDS: Cholecalciferol (D-3) 1,000 UNIT TABLET PO SCH (08:39)
[2018-03-22] MEDS: Apixaban 5 MG TABLET PO SCH ×2 (08:39→21:18)
[2018-03-22] MEDS: Gabapentin 300 MG CAPSULE PO SCH ×4 (08:39→21:18)
[2018-03-22] MEDS: amLODIPine 5 MG TABLET PO SCH (08:39)
[2018-03-22] MEDS: Lisinopril 20 MG TABLET PO SCH (08:39)
[2018-03-22] MEDS: Insulin DETEMIR 100 UNIT/ML X5UNITS SQ SCH (08:39)
[2018-03-22] MEDS: Insulin LISPRO 300 UNITS/3 ML VIAL SQ SCH ×4 (08:39→21:20)
--- NOTE | 2018-03-22 15:54 | Internal Med Progress Note ---
Date of Encounter: 03/22/18 Time of Encounter: 15:46 - Assessment and plan (1) Weakness Current Visit: No Status: Acute Assessment and plan: March 15. Continue therapy intervention. (2) Hypertension Current Visit: Yes Status: Chronic Assessment and plan: March 15. Inadequately controlled. Continue lisinopril and Lopressor and add Cardura March 18. Increase Cardura. Continue lisinopril and Lopressor. March 20. Blood pressure inadequately controlled. Increase Cardura. Continue lisinopril and Lopressor. March 22. Amlodipine was added yesterday on a scheduled basis. Continue lisinopril, Lopressor, and Cardura. Qualifiers: Hypertension type: essential hypertension Qualified Code(s): I10 - Essential (primary) hypertension (3) DM type 2 (diabetes mellitus, type 2) Current Visit: No Status: Chronic Assessment and plan: March 15. Continue Levemir and Accu-Cheks with SSI. March 18. Hemoglobin A1c was 8.5% on 03/13/2018. Blood sugars show fluctu ation. Continue present dose Levemir and Accu-Cheks with SSI. Qualifiers: Diabetes mellitus custodial insulin use: with custodial use Diabetes mellitus complication status: without complication Qualified Code(s): E11.9 - Type 2 diabetes mellitus without complications; Z79.4 - assisted (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 of insulin (4) History of pulmonary embolus (PE) Current Visit: No Status: Chronic Assessment and plan: March 15. Continue Eliquis (5) Urinary retention Current Visit: No Status: Acute Assessment and plan: March 15. Continue Smith catheter and Urecholine. March 18. Trial of discontinuation of Smith. Continue Urecholine for now. March 22. She is voiding adequately now. Urecholine and Smith catheter have been discontinued. I explained to her that use of oxybutynin may have caused urinary retention and she should not be restarted on it. (6) Constipation Current Visit: No Status: Acute Assessment and plan: March 18. Order MiraLAX and continue Colace. March 20. Continue MiraLAX and Colace. Add scheduled MOM. Qualifiers: Constipation type: unspecified constipation type Qualified Code(s): K59.00 - Constipation, unspecified (7) Atrial fibrillation and flutter Current Visit: Yes Status: Acute Assessment and plan: October 16. Continue Eliquis. - Subjective Interval history: March 15. She was hospitalized in acute-care March 10- after presenting with acute renal failure and UTI. She had urinary retention with more than 1000 mL in her bladder. Oxybutynin was discontinued and Smith catheter inserted. She failed a voiding trial after Smith removal and the catheter was reinserted. She was placed on Urecholine. Azotemia improved significantly following catheter insertion. Urine culture showed Escherichia coli and she received antibiotics with continuation for 2 additional days ordered in swing bed. Physical therapy and occupational therapy evaluations with ongoing intervention were done. She has no new complaints today. March 18. She has no new complaints. March 20. She has no new complaints except constipation. March 22. She has no new complaints. - Constitutional Vitals: Temp Pulse Resp BP Pulse Ox 97.3 F L 60 16 155/60 94 03/22/18 06:00 03/22/18 06:00 03/22/18 06:00 03/22/18 06:00 03/22/18 06:00 Exam: She is resting comfortably in bed and appears in no acute distress. Her affect is bright and cheerful. I reviewed her medications and lab results. Internal Medicine: Result - Labs CBC & Chem 7: 03/19/18 06:30 03/19/18 06:30 - VTE Documentation of Mechanical Device: Graduated compression elastic hosiery Consult Discharge Plan - Plan Referrals: Cody Geronimo MD [Primary Care Provider] - 1 week
[2018-03-22] MEDS: MOM Conc 10 ML UD.LIQ PO SCH (18:03)
[2018-03-22] MEDS: Aspirin 81 MG TAB.CHEW PO SCH (21:19)
[2018-03-23] MEDS: Cholecalciferol (D-3) 1,000 UNIT TABLET PO SCH (08:57)
[2018-03-23] MEDS: amLODIPine 5 MG TABLET PO SCH (08:58)
[2018-03-23] MEDS: Gabapentin 300 MG CAPSULE PO SCH ×4 (08:58→21:15)
[2018-03-23] MEDS: Lisinopril 20 MG TABLET PO SCH (08:58)
[2018-03-23] MEDS: Apixaban 5 MG TABLET PO SCH ×2 (08:58→21:15)
[2018-03-23] MEDS: Insulin DETEMIR 100 UNIT/ML X5UNITS SQ SCH (08:58)
[2018-03-23] MEDS: Insulin LISPRO 300 UNITS/3 ML VIAL SQ SCH ×4 (08:58→21:18)
[2018-03-23] MEDS: Aspirin 81 MG TAB.CHEW PO SCH (21:15)
[2018-03-24] MEDS: Insulin LISPRO 300 UNITS/3 ML VIAL SQ SCH ×4 (07:59→21:34)
[2018-03-24] MEDS: Lisinopril 20 MG TABLET PO SCH (09:48)
[2018-03-24] MEDS: Cholecalciferol (D-3) 1,000 UNIT TABLET PO SCH (09:49)
[2018-03-24] MEDS: amLODIPine 5 MG TABLET PO SCH (09:49)
[2018-03-24] MEDS: Insulin DETEMIR 100 UNIT/ML X5UNITS SQ SCH (09:50)
[2018-03-24] MEDS: Gabapentin 300 MG CAPSULE PO SCH ×4 (09:50→21:30)
[2018-03-24] MEDS: Apixaban 5 MG TABLET PO SCH ×2 (09:50→21:30)
[2018-03-24] MEDS: MOM Conc 10 ML UD.LIQ PO SCH (17:10)
[2018-03-24] MEDS: Aspirin 81 MG TAB.CHEW PO SCH (21:30)
[2018-03-25] MEDS: Insulin LISPRO 300 UNITS/3 ML VIAL SQ SCH ×4 (09:04→21:27)
[2018-03-25] MEDS: Insulin DETEMIR 100 UNIT/ML X5UNITS SQ SCH (09:26)
[2018-03-25] MEDS: Gabapentin 300 MG CAPSULE PO SCH ×4 (09:37→21:24)
[2018-03-25] MEDS: Apixaban 5 MG TABLET PO SCH ×2 (09:37→21:24)
[2018-03-25] MEDS: Cholecalciferol (D-3) 1,000 UNIT TABLET PO SCH (09:37)
[2018-03-25] MEDS: Lisinopril 20 MG TABLET PO SCH (09:37)
[2018-03-25] MEDS: amLODIPine 5 MG TABLET PO SCH (09:37)
--- NOTE | 2018-03-25 11:00 | Internal Med Progress Note ---
Date of Encounter: 03/25/18 Time of Encounter: 10:50 - Assessment and plan (1) Weakness Current Visit: No Status: Acute Assessment and plan: March 15. Continue therapy intervention. (2) Hypertension Current Visit: Yes Status: Chronic Assessment and plan: March 15. Inadequately controlled. Continue lisinopril and Lopressor and add Cardura March 18. Increase Cardura. Continue lisinopril and Lopressor. March 20. Blood pressure inadequately controlled. Increase Cardura. Continue lisinopril and Lopressor. March 22. Amlodipine was added yesterday on a scheduled basis. Continue lisinopril, Lopressor, and Cardura. Qualifiers: Hypertension type: essential hypertension Qualified Code(s): I10 - Essential (primary) hypertension (3) DM type 2 (diabetes mellitus, type 2) Current Visit: No Status: Chronic Assessment and plan: March 15. Continue Levemir and Accu-Cheks with SSI. March 18. Hemoglobin A1c was 8.5% on 03/13/2018. Blood sugars show fluctu ation. Continue present dose Levemir and Accu-Cheks with SSI. Qualifiers: Diabetes mellitus correction insulin use: with correction use Diabetes mellitus complication status: without complication Qualified Code(s): E11.9 - Type 2 diabetes mellitus without complications; Z79.4 - half-way (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 of insulin (4) History of pulmonary embolus (PE) Current Visit: No Status: Chronic Assessment and plan: March 15. Continue Eliquis (5) Urinary retention Current Visit: No Status: Acute Assessment and plan: March 15. Continue Smith catheter and Urecholine. March 18. Trial of discontinuation of Smith. Continue Urecholine for now. March 22. She is voiding adequately now. Urecholine and Smith catheter have been discontinued. I explained to her that use of oxybutynin may have caused urinary retention and she should not be restarted on it. (6) Constipation Current Visit: No Status: Acute Assessment and plan: March 18. Order MiraLAX and continue Colace. March 20. Continue MiraLAX and Colace. Add scheduled MOM. Qualifiers: Constipation type: unspecified constipation type Qualified Code(s): K59.00 - Constipation, unspecified (7) Atrial fibrillation and flutter Current Visit: Yes Status: Acute Assessment and plan: October 16. Continue Eliquis. - Subjective Interval history: March 15. She was hospitalized in acute-care March 10- after presenting with acute renal failure and UTI. She had urinary retention with more than 1000 mL in her bladder. Oxybutynin was discontinued and Smith catheter inserted. She failed a voiding trial after Smith removal and the catheter was reinserted. She was placed on Urecholine. Azotemia improved significantly following catheter insertion. Urine culture showed Escherichia coli and she received antibiotics with continuation for 2 additional days ordered in swing bed. Physical therapy and occupational therapy evaluations with ongoing intervention were done. She has no new complaints today. March 18. She has no new complaints. March 20. She has no new complaints except constipation. March 22. She has no new complaints. March 25. She has no new complaints. - Constitutional Vitals: Temp Pulse Resp BP Pulse Ox 97.8 F 71 19 152/71 97 03/25/18 09:40 03/25/18 09:40 03/25/18 09:40 03/25/18 09:40 03/25/18 09:40 Exam: She is resting comfortably in bed and appears in no acute distress. Her affect is bright and cheerful. Lungs are clear anteriorly. I reviewed her medications and lab results. Internal Medicine: Result - Labs CBC & Chem 7: 03/19/18 06:30 03/19/18 06:30 - VTE Documentation of Mechanical Device: Graduated compression elastic hosiery Consult Discharge Plan - Plan Referrals: Cody Geronimo MD [Primary Care Provider] - 1 week
[2018-03-25] MEDS: Aspirin 81 MG TAB.CHEW PO SCH (21:26)
[2018-03-26] MEDS: Insulin LISPRO 300 UNITS/3 ML VIAL SQ SCH ×4 (07:30→20:26)
[2018-03-26] MEDS: Apixaban 5 MG TABLET PO SCH ×2 (08:34→20:37)
[2018-03-26] MEDS: Cholecalciferol (D-3) 1,000 UNIT TABLET PO SCH (08:35)
[2018-03-26] MEDS: amLODIPine 5 MG TABLET PO SCH (08:36)
[2018-03-26] MEDS: Lisinopril 20 MG TABLET PO SCH (08:36)
[2018-03-26] MEDS: Gabapentin 300 MG CAPSULE PO SCH ×4 (08:36→20:36)
[2018-03-26] MEDS: Insulin DETEMIR 100 UNIT/ML X5UNITS SQ SCH (08:38)
[2018-03-26] MEDS: MOM Conc 10 ML UD.LIQ PO SCH (18:43)
[2018-03-26] MEDS: Oxymetazoline Nasal SPRAY BOTTLE NS PRN (20:36)
[2018-03-26] MEDS: Aspirin 81 MG TAB.CHEW PO SCH (20:37)
[2018-03-27] MEDS: Lisinopril 20 MG TABLET PO SCH (08:35)
[2018-03-27] MEDS: amLODIPine 5 MG TABLET PO SCH (08:35)
[2018-03-27] MEDS: Gabapentin 300 MG CAPSULE PO SCH ×4 (08:35→20:34)
[2018-03-27] MEDS: Cholecalciferol (D-3) 1,000 UNIT TABLET PO SCH (08:35)
[2018-03-27] MEDS: Insulin DETEMIR 100 UNIT/ML X5UNITS SQ SCH (08:35)
[2018-03-27] MEDS: Oxymetazoline Nasal SPRAY BOTTLE NS PRN (08:35)
[2018-03-27] MEDS: Apixaban 5 MG TABLET PO SCH ×2 (08:36→20:34)
[2018-03-27] MEDS: Insulin LISPRO 300 UNITS/3 ML VIAL SQ SCH ×4 (08:40→20:33)
[2018-03-27] MEDS: Aspirin 81 MG TAB.CHEW PO SCH (20:34)
[2018-03-28] MEDS: Oxymetazoline Nasal SPRAY BOTTLE NS PRN (08:08)
[2018-03-28] MEDS: Insulin DETEMIR 100 UNIT/ML X5UNITS SQ SCH (08:08)
[2018-03-28] MEDS: Lisinopril 20 MG TABLET PO SCH (08:08)
[2018-03-28] MEDS: Apixaban 5 MG TABLET PO SCH ×2 (08:09→21:11)
[2018-03-28] MEDS: amLODIPine 5 MG TABLET PO SCH (08:09)
[2018-03-28] MEDS: Insulin LISPRO 300 UNITS/3 ML VIAL SQ SCH ×4 (08:09→21:17)
[2018-03-28] MEDS: Gabapentin 300 MG CAPSULE PO SCH ×4 (08:09→21:11)
[2018-03-28] MEDS: Cholecalciferol (D-3) 1,000 UNIT TABLET PO SCH (08:09)
[2018-03-28] MEDS: MOM Conc 10 ML UD.LIQ PO SCH (17:25)
--- NOTE | 2018-03-28 17:57 | Internal Med Progress Note ---
Date of Encounter: 03/28/18 Time of Encounter: 19:15 - Assessment and plan (1) Weakness Current Visit: No Status: Acute Assessment and plan: March 15. Continue therapy intervention. (2) Hypertension Current Visit: Yes Status: Chronic Assessment and plan: March 15. Inadequately controlled. Continue lisinopril and Lopressor and add Cardura March 18. Increase Cardura. Continue lisinopril and Lopressor. March 20. Blood pressure inadequately controlled. Increase Cardura. Continue lisinopril and Lopressor. March 22. Amlodipine was added yesterday on a scheduled basis. Continue lisinopril, Lopressor, and Cardura. March 28. Blood pressure minimally changed with the addition of Cardura and amlodipine. Continue present regimen. Qualifiers: Hypertension type: essential hypertension Qualified Code(s): I10 - Essential (primary) hypertension (3) DM type 2 (diabetes mellitus, type 2) Current Visit: No Status: Chronic Assessment and plan: March 15. Continue Levemir and Accu-Cheks with SSI. March 18. Hemoglobin A1c was 8.5% on 03/13/2018. Blood sugars show fluctuation. Continue present dose Levemir and Accu-Cheks with SSI. 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 Continue Eliquis (5) Urinary retention Current Visit: No Status: Acute Assessment and plan: March 15. Continue Smith catheter and Urecholine. March 18. Trial of discontinuation of Smith. Continue Urecholine for now. March 22. She is voiding adequately now. Urecholine and Smith catheter have been discontinued. I explained to her that use of oxybutynin may have caused urinary retention and she should not be restarted on it. (6) Constipation Current Visit: No Status: Acute Assessment and plan: March 18. Order MiraLAX and continue Colace. March 20. Continue MiraLAX and Colace. Add scheduled MOM. Qualifiers: Constipation type: unspecified constipation type Qualified Code(s): K59.00 - Constipation, unspecified (7) Atrial fibrillation and flutter Current Visit: Yes Status: Acute Assessment and plan: March 20. Continue Eliquis. - Subjective Interval history: March 15. She was hospitalized in acute-care March 10- after presenting with acute renal failure and UTI. She had urinary retention with more than 1000 mL in her bladder. Oxybutynin was discontinued and Smith catheter inserted. She failed a voiding trial after Smith removal and the catheter was reinserted. She was placed on Urecholine. Azotemia improved significantly following catheter insertion. Urine culture showed Escherichia coli and she received antibiotics with continuation for 2 additional days ordered in swing bed. Physical therapy and occupational therapy evaluations with ongoing intervention were done. She has no new complaints today. March 18. She has no new complaints. March 20. She has no new complaints except constipation. March 22. She has no new complaints. March 25. She has no new complaints. March 28. She has no new complaints and feels well. She states she is planning on leaving to go home by March 31. - Constitutional Vitals: Temp Pulse Resp BP Pulse Ox 98.4 F 70 14 169/70 94 03/28/18 07:15 03/28/18 07:15 03/28/18 07:15 03/28/18 07:15 03/28/18 07:15 Exam: She is resting comfortably in bed and appears in no acute distress. Her affect is very bright and cheerful. I reviewed her medications and lab results. Internal Medicine: Result - Labs CBC & Chem 7: 03/19/18 06:30 03/19/18 06:30 - VTE Documentation of Mechanical Device: Graduated compression elastic hosiery Consult Discharge Plan - Plan Referrals: Cody Geronimo MD [Primary Care Provider] - 1 week
[2018-03-28] MEDS: Aspirin 81 MG TAB.CHEW PO SCH (21:13)
[2018-03-29] MEDS: Oxymetazoline Nasal SPRAY BOTTLE NS PRN (08:17)
[2018-03-29] MEDS: Insulin DETEMIR 100 UNIT/ML X5UNITS SQ SCH (08:17)
[2018-03-29] MEDS: Insulin LISPRO 300 UNITS/3 ML VIAL SQ SCH ×4 (08:17→21:14)
[2018-03-29] MEDS: Lisinopril 20 MG TABLET PO SCH (08:19)
[2018-03-29] MEDS: Gabapentin 300 MG CAPSULE PO SCH ×4 (08:19→21:13)
[2018-03-29] MEDS: amLODIPine 5 MG TABLET PO SCH (08:19)
[2018-03-29] MEDS: Cholecalciferol (D-3) 1,000 UNIT TABLET PO SCH (08:20)
[2018-03-29] MEDS: Apixaban 5 MG TABLET PO SCH ×2 (08:20→21:13)
[2018-03-29] MEDS: Aspirin 81 MG TAB.CHEW PO SCH (21:12)
[2018-03-30] MEDS: Insulin LISPRO 300 UNITS/3 ML VIAL SQ SCH ×4 (08:48→21:14)
[2018-03-30] MEDS: amLODIPine 5 MG TABLET PO SCH (08:49)
[2018-03-30] MEDS: Gabapentin 300 MG CAPSULE PO SCH ×4 (08:49→21:13)
[2018-03-30] MEDS: Cholecalciferol (D-3) 1,000 UNIT TABLET PO SCH (08:49)
[2018-03-30] MEDS: Lisinopril 20 MG TABLET PO SCH (08:49)
[2018-03-30] MEDS: Apixaban 5 MG TABLET PO SCH ×2 (08:49→21:14)
[2018-03-30] MEDS: Insulin DETEMIR 100 UNIT/ML X5UNITS SQ SCH (08:50)
--- NOTE | 2018-03-30 12:49 | Internal Med Progress Note ---
Date of Encounter: 03/30/18 Time of Encounter: 12:40 - Assessment and plan (1) Weakness Current Visit: No Status: Acute Assessment and plan: March 15. Continue therapy intervention. March 30. Anticipate discharge home tomorrow (2) Hypertension Current Visit: Yes Status: Chronic Assessment and plan: March 15. Inadequately controlled. Continue lisinopril and Lopressor and add Cardura March 18. Increase Cardura. Continue lisinopril and Lopressor. March 20. Blood pressure inadequately controlled. Increase Cardura. Continue lisinopril and Lopressor. March 22. Amlodipine was added yesterday on a scheduled basis. Continue lisinopril, Lopressor, and Cardura. March 28. Blood pressure minimally changed with the addition of Cardura and amlodipine. Continue present regimen. Qualifiers: Hypertension type: essential hypertension Qualified Code(s): I10 - Essential (primary) hypertension (3) DM type 2 (diabetes mellitus, type 2) Current Visit: No Status: Chronic Assessment and plan: March 15. Continue Levemir and Accu-Cheks with SSI. March 18. Hemoglobin A1c was 8.5% on 03/13/2018. Blood sugars show fluctuation. Continue present dose Levemir and Accu-Cheks with SSI. 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 Continue Eliquis (5) Urinary retention Current Visit: No Status: Acute Assessment and plan: March 15. Continue Smith catheter and Urecholine. March 18. Trial of discontinuation of Smith. Continue Urecholine for now. March 22. She is voiding adequately now. Urecholine and Smith catheter have been discontinued. I explained to her that use of oxybutynin may have caused urinary retention and she should not be restarted on it. (6) Constipation Current Visit: No Status: Acute Assessment and plan: March 18. Order MiraLAX and continue Colace. March 20. Continue MiraLAX and Colace. Add scheduled MOM. Qualifiers: Constipation type: unspecified constipation type Qualified Code(s): K59.00 - Constipation, unspecified (7) Atrial fibrillation and flutter Current Visit: Yes Status: Acute Assessment and plan: March 20. Continue Eliquis. - Subjective Interval history: March 15. She was hospitalized in acute-care March 10 after presenting with acute renal failure and UTI. She had urinary retention with more than 1000 mL in her bladder. Oxybutynin was discontinued and Msith catheter inserted. She failed a voiding trial after Smith removal and the catheter was reinserted. She was placed on Urecholine. Azotemia improved significantly following catheter insertion. Urine culture showed Escherichia coli and she received antibiotics with continuation for 2 additional days ordered in swing bed. Physical therapy and occupational therapy evaluations with ongoing intervention were done. She has no new complaints today. March 18. She has no new complaints. March 20. She has no new complaints except constipation. March 22. She has no new complaints. March 25. She has no new complaints. March 28. She has no new complaints and feels well. She states she is planning on leaving to go home by March 31. March 30. She has no new complaints and feels well. She anticipates discharge home tomorrow. - Constitutional Vitals: Temp Pulse Resp BP Pulse Ox 98.3 F 58 16 138/61 96 03/30/18 06:47 03/30/18 06:47 03/30/18 06:47 03/30/18 06:47 03/30/18 06:47 Exam: She is resting comfortably in bed and appears in no acute distress. Her affect is bright and cheerful. I reviewed her medications and lab results. Internal Medicine: Result - Labs CBC & Chem 7: 03/19/18 06:30 03/19/18 06:30 - VTE Documentation of Mechanical Device: Graduated compression elastic hosiery Consult Discharge Plan - Plan Referrals: Cody Geronimo MD [Primary Care Provider] - 1 week
[2018-03-30] MEDS: MOM Conc 10 ML UD.LIQ PO SCH (16:45)
[2018-03-30] MEDS: Aspirin 81 MG TAB.CHEW PO SCH (21:13)
[2018-03-31 06:24] VITALS: BP 132/55
[2018-03-31] MEDS: Insulin DETEMIR 100 UNIT/ML X5UNITS SQ SCH (08:36)
[2018-03-31] MEDS: Gabapentin 300 MG CAPSULE PO SCH (08:37)
[2018-03-31] MEDS: Cholecalciferol (D-3) 1,000 UNIT TABLET PO SCH (08:38)
[2018-03-31] MEDS: amLODIPine 5 MG TABLET PO SCH (08:43)
[2018-03-31] MEDS: Oxymetazoline Nasal SPRAY BOTTLE NS PRN (08:43)
[2018-03-31] MEDS: Insulin LISPRO 300 UNITS/3 ML VIAL SQ SCH (08:44)
[2018-03-31] MEDS: Lisinopril 20 MG TABLET PO SCH (08:45)
[2018-03-31] MEDS: Apixaban 5 MG TABLET PO SCH (08:45)
--- NOTE | 2018-03-31 09:26 | Discharge Summary ---
Date of Encounter: 03/31/18 Time of Encounter: 09:15 - Discharge Diagnosis (1) Weakness Priority: Primary Status: Acute (2) Hypertension Priority: Secondary Status: Chronic Qualifiers: Hypertension type: essential hypertension Qualified Code(s): I10 - Essential (primary) hypertension (3) DM type 2 (diabetes mellitus, type 2) Priority: Secondary Status: Chronic Qualifiers: Diabetes mellitus senior care insulin use: with senior care use Diabetes mellitus complication status: without complication Qualified Code(s): E11.9 - Type 2 diabetes mellitus without complications; Z79.4 - snf (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 of insulin (4) History of pulmonary embolus (PE) Priority: Secondary Status: Chronic (5) Urinary retention Priority: Secondary Status: Resolved (6) Constipation Priority: Secondary Status: Acute Qualifiers: Constipation type: unspecified constipation type Qualified Code(s): K59.00 - Constipation, unspecified (7) Atrial fibrillation and flutter Priority: Secondary Status: Chronic Hospital course: Ms. Pugh is a 87 year old female who was hospitalized in acute-care March 10 after presenting with acute renal failure and UTI. She had urinary retention with more than 1000 mL in her bladder. Oxybutynin was discontinued and Smith catheter inserted. She failed a voiding trial after Smith removal and the catheter was reinserted. She was placed on Urecholine. Azotemia improved significantly following catheter insertion. Urine culture showed Escherichia coli and she received antibiotics with continuation for 2 additional days ordered in swing bed. Physical therapy and occupational therapy evaluations with ongoing intervention were done. She made satisfactory progress in swing bed. A another voiding trial was done on March 18 with removal of the Smith catheter and she was able to spontaneously void and had no further problems. She will remain off oxybutynin. Urecholine is no longer needed. She was continued on lisinopril and Lopressor for hypertension. Cardura and amlodipine were added to improve blood pressure control. She will remain off hydrochlorothiazide. Azotemia improved significantly after it was discontinued. On March 31 arrangements were complete for her to be discharged home. She will follow with her PCP Dr. Cody Geronimo within 1 week. - Time Spent with Patient Total time spent providing and/or coordinating discharge services: - Discharge Medications Prescriptions: amLODIPine [Norvasc] 5 mg PO DAILY #30 tablet Doxazosin [Cardura] 8 mg PO HS #30 tablet Home Medications: Aspirin 81 mg PO HS 10/03/15 [History] Insulin ASPART [NovoLOG] 4 - 10 unit SQ TIDWM PRN 10/03/15 [History] Simvastatin [Zocor] 10 mg PO HS 10/03/15 [History] Lisinopril [Zestril] 40 mg PO DAILY 10/02/16 [History] Metoprolol [Lopressor] 12.5 mg PO BID 06/08/17 [History] Apixaban [Eliquis] 5 mg PO BID 08/03/17 [History] Colace 100 mg PO DAILY 03/11/18 [History] Cyclobenzaprine [Flexeril] 5 mg PO TID PRN 03/11/18 [History] Gabapentin [Neurontin] 300 mg PO QID 03/11/18 [History] Meclizine [Antivert] 25 mg PO TID PRN 03/11/18 [History] Tylenol 500 mg PO Q4HR 03/11/18 [History] Vitamin D 1,000 units PO DAILY 03/11/18 [History] Insulin DETEMIR [Levemir] 18 unit SQ HS #0 03/14/18 [Rx] Doxazosin [Cardura] 8 mg PO HS #30 tablet 03/31/18 [Rx] amLODIPine [Norvasc] 5 mg PO DAILY #30 tablet 03/31/18 [Rx] Allergies/Adverse Reactions: Allergy/AdvReac Type Severity Reaction Status Date / Time Penicillins [PCN] Allergy Rash Verified 03/03/18 19:09 Hydromorphone [From Dilaudid] AdvReac Gastrointestinal Verified 03/03/18 19:09 Upset Date of admission: 03/14/18 19:33 Primary care physician: Cody Geronimo MD Consults: 03/14/18 19:10 Consult to Physical Therapy [CONS] Routine Comment: Evaluate, develop and implement POC Reason for Consult: Evaluate, develop and implement POC Does patient have active BEDREST order?: No Is patient medically & hemodynamically stable?: Yes 03/14/18 19:12 Consult to Occupational Therapy [CONS] Routine Comment: Evaluate, develop and implement POC Reason for Consult: Evaluate, develop and implement POC Does patient have active BEDREST order?: No Is patient medically & hemodynamically stable?: Yes - Constitutional Vitals: Temp Pulse Resp BP Pulse Ox 97.7 F 59 16 132/55 94 03/31/18 06:21 03/31/18 06:21 03/31/18 06:21 03/31/18 06:21 03/31/18 06:21 - Patient Status Disposition: Home Health Service - Discharge Instructions Follow Up With: Cody Geronimo MD [Primary Care Provider] - 1 week - Diet and Activity Activity: as per physical therapy Diet: diabetic diet - VTE Documentation of Mechanical Device: Graduated compression elastic hosiery
--- NOTE | 2018-03-31 09:33 | Physician Discharge Referral ---
Home Health/Hosp Referral Info Transfer to: Home Health Attending Provider: Elijah Provider in Charge Post Discharge: PCP (Cody Geronimo M.D.) - Diagnosis (1) Weakness Priority: Primary Status: Acute (2) Hypertension Priority: Secondary Status: Chronic (3) DM type 2 (diabetes mellitus, type 2) Priority: Secondary Status: Chronic (4) History of pulmonary embolus (PE) Priority: Secondary Status: Chronic (5) Urinary retention Priority: Secondary Status: Resolved (6) Constipation Priority: Secondary Status: Acute (7) Atrial fibrillation and flutter Priority: Secondary Status: Chronic - Respiratory Orders Smoking Cessation: Smoking cessation has been advised. For more information, call the [place] Tobacco Quit Line at 3-731-JBEH-NOW. - Diet/Nutrition Diet/Nutrition Orders: No Concentrated Sweets - Activity Activity Orders: Walker - Services Needed Following services are medically necessary services: Nursing, Home Health Aide, Physical Therapy, Occupational Therapy - Transfer Medications Prescriptions: amLODIPine [Norvasc] 5 mg PO DAILY #30 tablet Doxazosin [Cardura] 8 mg PO HS #30 tablet Home Medications: Aspirin 81 mg PO HS 10/03/15 [History] Insulin ASPART [NovoLOG] 4 - 10 unit SQ TIDWM PRN 10/03/15 [History] Simvastatin [Zocor] 10 mg PO HS 10/03/15 [History] Lisinopril [Zestril] 40 mg PO DAILY 10/02/16 [History] Metoprolol [Lopressor] 12.5 mg PO BID 06/08/17 [History] Apixaban [Eliquis] 5 mg PO BID 08/03/17 [History] Colace 100 mg PO DAILY 03/11/18 [History] Cyclobenzaprine [Flexeril] 5 mg PO TID PRN 03/11/18 [History] Gabapentin [Neurontin] 300 mg PO QID 03/11/18 [History] Meclizine [Antivert] 25 mg PO TID PRN 03/11/18 [History] Tylenol 500 mg PO Q4HR 03/11/18 [History] Vitamin D 1,000 units PO DAILY 03/11/18 [History] Insulin DETEMIR [Levemir] 18 unit SQ HS #0 03/14/18 [Rx] Doxazosin [Cardura] 8 mg PO HS #30 tablet 03/31/18 [Rx] amLODIPine [Norvasc] 5 mg PO DAILY #30 tablet 03/31/18 [Rx] Allergies/Adverse Reactions: Allergy/AdvReac Type Severity Reaction Status Date / Time Penicillins [PCN] Allergy Rash Verified 03/03/18 19:09 Hydromorphone [From Dilaudid] AdvReac Gastrointestinal Verified 03/03/18 19:09 Upset Certification: Further, I certify that my clinical findings support that this patient is homebound (i.e. absences from home require considerable and taxing effort and are for medical reasons or evangelical services or infrequently or short duration when for other reasons) because: Homebound Reason: Leaving home requires considerable and taxing effort due to condition (Weakness, hypertension, DM 2) Attestation: My signature below is to certify that this patient is under my care and that I, or nurse practitioner, or a physician's captain's assistant working with me, has a [id number] encounter with this patient.
== END 2018-03-31 10:45 | disposition home health service (06) | DRG 945 ==
LOC: INPPIK 19:33
PROVIDERS: ADMIT Internal Medicine; ATTEND Internal Medicine